=== PATIENT | male | born 1995 | race Caucasian/White ===

== ENCOUNTER 2018-08-17 20:37 | Emergency (ER) | payer MEDICAID, SELFPAY ==
[2018-08-17 20:39] VITALS: BP 120/73; PULSE 71; RESP 18; TEMP 36.4; O2SAT 98
--- NOTE | 2018-08-17 20:49 | ED.GENADUL_ITS ---
Discharge Plan Disposition Patient Disposition: HOME Condition: Stable Discharge Details Chief Complaint: RashLesion Clinical Impression: Rash, Skin pustule Primary Care Provider: KALA ALCARAZ ED Provider: Carole Gonzalez Home Meds and New Rx's Prescriptions: New mupirocin 2 % ointment 1 applic TP TID Qty: 15 RF: 0 Continue triamcinolone acetonide 0.1 % Cream 1 applic TOPICAL BID RF: 0 Discharge Instructions Instructions: Acute Rash (ED) Additional Instructions: Keep area clean dry and covered. Wash with soap and water and apply the mupirocin 3 times daily as directed. You can also continue using the steroid cream triamcinolone directed. Call your primary care doctor tomorrow to schedule follow-up appointment for reevaluation within the next week. Return here immediately with any worsening or new concerning symptoms such as fever, increased pain, redness, swelling or red streaking. Discharge Data Discharge Date/Time-TO BE ENTERED AT DEPARTURE: 08/17/18 21:19 Discharge Physician: Carole Gonzalez Medical Decision Making 22-year-old male presents with itchy tender rash noted to left hand over the past few week. No change with triamcinolone cream. Patient admits to having pet rats and states he handled 1 of them recently after they , but denies any known injury or bite. Denies any other new exposures. Left medial and palmar hand notes a well delineated circular rash with mild central clearing and a darker erythematous border with scattered pustules. There is no red streaking, induration, fluctuance or abscess. Patient appears nontoxic. He is afebrile. Unsure of diagnosis at this time but with pustules and tenderness, suspect more localized infection so will apply bacitracin here and sent home with prescription for mupirocin. He is instructed to call his primary care doctor tomorrow to schedule a follow-up appointment for reevaluation and return here immediately if worse. HPI General Mode of arrival: ambulatory . Date/Time Provider Initiated Documentation: 08/17/18 20:48 . Limitations to Documentation: no limitations . Information obtained by: patient . HPI Narrative: Patient is a 22-year-old male who presents with rash to left hand for the past few week. Patient denies known injury, bite, new meds, lotions, detergents, soaps. Patient states it started as a small area of an itchy rash and now has progressed with pustules and is now painful and tender to touch. He denies fever, any other rash, vomiting or diarrhea. Patient has been using triamcinolone cream without relief. Past medical history: None Surgical history: None Meds: None Allergies: None Related Data Home Medications Medication Instructions Recorded Confirmed mupirocin 1 applic TP TID #15 gm 08/17/18 triamcinolone acetonide 1 applic TOPICAL BID 08/17/18 08/17/18 Previous Rx's Medication Instructions Recorded mupirocin 1 applic TP TID #15 gm 08/17/18 Allergies Allergy/AdvReac Type Severity Reaction Status Date / Time No Known Allergies Allergy Unverified 11/25/16 20:00 General Stated Complaint: RashLesion MICHAEL: 5 Review of Systems Review of Systems All systems reviewed & are unremarkable except as noted in HPI and below Constitutional Reports as per HPI, Denies chills and Denies fever(s) Eyes Denies blurry vision ENT Denies dizziness, Denies sore throat and Denies throat swelling Cardiovascular Denies chest pain and Denies dyspnea Respiratory Denies dyspnea Gastrointestinal Denies abdominal pain, Denies diarrhea and Denies vomiting Genitourinary Denies hematuria and Denies dysuria Musculoskeletal Denies back pain and Denies numbness Integumentary/Breasts Denies lesions and Reports rash Neurologic Denies dizziness and Denies numbness Allergic/Immunologic Denies throat swelling PFSH Social History Smoking/Tobacco Use Status: Never Exam Const General: cooperative, healthy appearing and no acute distress HENGA Head: normal to inspection Mouth: oral mucosae normal Eyes General: appearance normal, both eyes and all related structures Neck Neck: normal visual inspection Resp Effort & Inspection: normal respiratory effort and able to speak in complete sentences Cardio Rate: regular rate Skin Rashes: rashes noted (An approximately 3 x 3 cm circular area of erythema with minimal central clearing and an outer erythematous border, with scattered pustules noted on left medial hand on palmar and medial surface overlying fifth metacarpal) Neuro General: alert, awake and oriented x3 Motor: muscle tone normal throughout Extrem General: normal to inspection and full ROM Psych Appearance: grossly normal Affect: normal affect Course Vital Signs Temperature 97.5 F L 08/17/18 20:39 Pulse 71 08/17/18 20:39 Respiratory Rate 18 08/17/18 20:39 Blood Pressure 120/73 08/17/18 20:39 Pulse Oximetry 98 08/17/18 20:39 Temperature 97.5 F L 08/17/18 20:39 Temperature Source Temporal Artery Scan 08/17/18 20:39 Pulse 71 08/17/18 20:39 Respiratory Rate 18 08/17/18 20:39 Respiratory Effort 08/17/18 20:39 Blood Pressure 120/73 08/17/18 20:39 Blood Pressure Position Sitting 08/17/18 20:39 Pulse Oximetry 98 08/17/18 20:39 Oxygen Delivery Method Room Air 08/17/18 20:39 Oxygen Flow Rate 0 08/17/18 20:39 Pain Level 5 08/17/18 20:39
[2018-08-17] MEDS: Bacitracin 1 PACKET (21:20)
== END 2018-08-17 21:19 | disposition home or self-care (01) ==
LOC: ER 21:23
PROVIDERS: Emergency Provider Physician Assistant; PCP Pediatrics
DX: R21 Rash and other nonspecific skin eruption (principal); L08.9 Local infection of the skin and subcutaneous tissue, unspecified
CPT/HCPCS: 99283

== ENCOUNTER 2019-05-31 15:25 | Emergency (ER) | payer MEDICAID, SELFPAY ==
[2019-05-31 15:27] VITALS: BP 112/64; PULSE 115; RESP 16; TEMP 37.3; O2SAT 98
--- NOTE | 2019-05-31 16:08 | DI.RAD_ITS ---
SYMPTOM/DIAGNOSIS: COUGH, R/O PNEUMONIA PA AND LATERAL CHEST: 05/31 The heart is normal in size. The lungs are clear. The mediastinal structures and pleura appear intact. CONCLUSION: Normal chest.
--- NOTE | 2019-05-31 16:27 | DI.VRAD_ITS ---
EXAM: XR Chest, 2 Views EXAM DATE/TIME: 05/31/2019 4:07 PM CLINICAL HISTORY: 23 years old, male; Cough TECHNIQUE: Imaging protocol: XR of the chest, 2 views. COMPARISON: No relevant prior studies available. FINDINGS: Lungs: Unremarkable. No consolidation. Pleural space: Unremarkable. No pleural effusion. No pneumothorax. Heart/Mediastinum: Unremarkable. No cardiomegaly. Bones/joints: Unremarkable. IMPRESSION: No acute findings. Dictated and Authenticated by: Gera Carmen MD. Ordering:MALLIKA Bhagat MD
--- NOTE | 2019-05-31 16:35 | W.ED.GENAD ---
Discharge Plan Disposition Patient Disposition: HOME Condition: Good Discharge Details Chief Complaint: Fever Clinical Impression: URI (upper respiratory infection) Primary Care Provider: Leandro Sánchez ED Provider: Olayinka Hawthorne Home Meds and New Rx's Prescriptions: New acetaminophen [Mapap Extra Strength] 500 MG tablet 1,000 mg PO Q6H 5 Days Qty: 60 RF: 0 ibuprofen [Motrin IB] 200 MG tablet 600 mg PO Q6H 5 Days Qty: 60 RF: 0 Discharge Instructions Instructions: Upper Respiratory Infection (ED) Additional Instructions: At this time your chest x-ray has been read as negative for any pneumonia from our radiologist. I suspect her symptoms are from a viral illness. Please make sure you are taking Tylenol and Motrin as directed and drinking 10 to 12 cups of water or electrolyte solution per day. If you notice any worsening of your symptoms, or any new symptoms such as vomiting, diarrhea, fever, chills, shortness of breath, chest pain, numbness, weakness, or fainting , please return immediately to the emergency department for reevaluation. Please follow up with your primary care provider as soon as possible for reassessment and reevaluation. As always, it was a pleasure participating in your medical care today. Stand Alone Forms: Work Release Referrals: Leandro Sánchez [Primary Care Provider] - Discharge Data Discharge Date/Time-TO BE ENTERED AT DEPARTURE: 05/31/19 16:54 Medical Decision Making 23-year-old male who presents for evaluation of malaise, mild myalgias, subjective fever of 99.6. he also has symptoms of an upper respiratory infection with congestion, runny nose, mild nonproductive cough. Physical exam demonstrates clear lung sounds, no clinical signs of meningitis. No nuchal rigidity, normal neurologic exam. No significant erythema besides a negative anterior oropharynx. No indication testing per [facility] criteria. Chest x-ray negative for any pneumonia. Suspect signs and symptoms are clinically consistent with a viral etiology. No red flags for endocarditis, no IV drug use. No cardiac murmur. Recommend hydration, NSAID use as necessary, and rest over the next 24 to 48 hours. Discussed red flags for which to return. I have extensively reviewed the treatment plan and discharge instructions with the patient and their family. I have addressed all patient concerns at this time. The patient and family was made aware of what symptoms to monitor for that would warrant a return to the emergency department. Discussed the plan with the patient and family, they demonstrate verbal understanding and agreement with our assessment and plan at this time. FINDINGS: Lungs: Unremarkable. No consolidation. Pleural space: Unremarkable. No pleural effusion. No pneumothorax. Heart/Mediastinum: Unremarkable. No cardiomegaly. Bones/joints: Unremarkable. IMPRESSION: No acute findings. Thank you for allowing us to participate in the care of your patient. Dictated and Authenticated by: Gera Carmen DO 05/31/2019 4:27 PM Eastern Time ([place] & [place]) HPI General Date/Time Provider Initiated Documentation: 05/31/19 15:51. HPI Narrative: This is a 23-year-old male with no significant past medical history presents today for feelings of malaise, myalgias, very mild headache, cough, runny nose and upper respiratory-like symptoms. Since it is been present for the last 24 hours. He does work at [employer] but he denies any other sick contacts. He has taken NSAIDs at home and this does improve his symptoms. He denies any chest pain, pleuritic chest pain, productivity for his cough, hemoptysis, or chills. He does admit to feeling slightly warm over the last 24 hours but denies any documented fever. I's temperature was 99.6. He denies any sore throat, dysuria, increased urinary frequency, nausea vomiting or diarrhea. He denies any other complaints at this time. He denies any visual changes, aversion to light or loud noise. He has not been drinking much as of late secondary to his mild malaise. He denies any IV or illicit drug use, pertinent surgical history, pertinent family history. Related Data Home Medications Medication Instructions Recorded Confirmed acetaminophen [Mapap Extra 1,000 mg PO Q6H 5 Days #60 tab 05/31/19 Strength] ibuprofen [Motrin Ib] 600 mg PO Q6H 5 Days #60 tab 05/31/19 Previous Rx's Medication Instructions Recorded acetaminophen [Mapap Extra 1,000 mg PO Q6H 5 Days #60 tab 05/31/19 Strength] ibuprofen [Motrin Ib] 600 mg PO Q6H 5 Days #60 tab 05/31/19 Allergies Allergy/AdvReac Type Severity Reaction Status Date / Time No Known Allergies Allergy Unverified 05/31/19 15:33 General Stated Complaint: Fever MICHAEL: 3 Review of Systems Review of Systems All systems reviewed & are unremarkable except as noted in HPI and below PFSH Social History Smoking/Tobacco Use Status: Never Alcohol Intake: never Drug use: Never Substance use type: does not use Do you feel safe at home: Yes Do you feel safe in your relationship?: Yes Exam Narrative Exam Narrative: 1.Const: Well-nourished, Well-developed, appearing stated age 2.Eyes: PERRL, no conjunctival injection, and symmetrical lids. 3.ENT: Atraumatic external nose and ears. Moist MM. Neck: Symmetric, trachea midline, No thyromegaly.No erythema in the posterior oropharynx. 4.CVS: +S1/S2, No murmurs or gallops. Peripheral pulses 2+ and equal in all extremities. Brisk capillary refill in all extremities. 5.RESP: Unlabored respiratory effort. Clear to auscultation bilaterally. No wheezes rales or rhonchi 6.GI: Soft, Nontender/Nondistended, No hepatosplenomegaly. No guarding or rebound. 7.MSK: Normocephalic/Atraumatic, Extremities w/o deformity or ttp No cyanosis or clubbing, Normal movement of all extremities. Patient demonstrates good movement of cervical neck. There is no nuchal rigidity, no nuchal tenderness. Patient is able to flex the neck without any difficulty or significant pain. Negative Kernig's and Brudzinski sign. 8.Skin: Warm, Dry. No rashes or lesions. 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 Sensation grossly intact, no focal neurologic deficits. All 6 cardinal planes of vision are fully intact. No evidence of rotatory or vertical nystagmus. The patient demonstrated a normal [id number], good dexterity. There was no evidence of dysdiadochokinesia. Patient was able to ambulate without difficulty. There was no wide-based gait. Romberg, and [id number] are both normal on testing. Sensation was intact bilaterally as well as muscle strength bilaterally for all extremities. Patient was able to verbalize butter cup with no slurring, or miss pronunciation. 10.Psych: (AAO) x3. Appropriate mood and affect Course Vital Signs Temperature 37.3 C 05/31/19 15:27 Pulse 115 H 05/31/19 15:27 Respiratory Rate 16 05/31/19 15:27 Blood Pressure 112/64 05/31/19 15:27 Pulse Oximetry 98 05/31/19 15:27 Temperature 37.3 C 05/31/19 15:27 Temperature Source Skin 05/31/19 15:27 Pulse 115 H 05/31/19 15:27 Respiratory Rate 16 05/31/19 15:27 Respiratory Effort 05/31/19 15:33 Blood Pressure 112/64 05/31/19 15:27 Blood Pressure Position Sitting 05/31/19 15:27 Pulse Oximetry 98 05/31/19 15:27 Oxygen Delivery Method Room Air 05/31/19 15:27 Oxygen Flow Rate 0 05/31/19 15:27 Pain Level 8 05/31/19 15:27 Lab/Test Results Lab/Test Results: 05/31/19 15:38 Nasopharynx Influenza Types A,B Antigen - Final
[2019-05-31 16:47] VITALS: BP 108/62; PULSE 99; RESP 14; TEMP 37.6; O2SAT 97
== END 2019-05-31 16:54 | disposition home or self-care (01) ==
PROVIDERS: Emergency Provider Student in an Organized Health Care Education/Training Program; PCP Pediatrics
DX: J06.9 Acute upper respiratory infection, unspecified (principal); R05 Cough
CPT/HCPCS: 87449; 99283; 71046

== ENCOUNTER 2019-06-04 19:22 | Emergency (ER) | payer MEDICAID, SELFPAY ==
[2019-06-04 19:27] VITALS: BP 117/64; PULSE 78; RESP 18; TEMP 36.7; O2SAT 95
--- NOTE | 2019-06-04 19:36 | ED.GENADUL_ITS ---
Discharge Plan Disposition Patient Disposition: HOME Condition: Stable Discharge Details Chief Complaint: RespSymp Clinical Impression: Bronchitis Primary Care Provider: Leandro Sánchez ED Provider: Marek Ta Home Meds and New Rx's Prescriptions: New doxycycline hyclate 100 mg tablet 100 mg PO BID Qty: 14 RF: 0 Continued acetaminophen [Mapap Extra Strength] 500 MG tablet 1,000 mg PO Q6H 5 Days Qty: 60 RF: 0 ibuprofen [Motrin IB] 200 MG tablet 600 mg PO Q6H 5 Days Qty: 60 RF: 0 Discharge Instructions Additional Instructions: continue to drink fluids to stay hydrated if you feel you are becoming more ill, having worsening breathing or persistent vomit return to the emergency department if not better in 1-2 weeks see your primary care provider Medical Decision Making 23 yo male with no chronic medical problems comes in with continued cough and not feeling well for about 7-10 days. Denies fevers anymore, was seen a few days ago and dx'd with likely uri but continues to cough and have sinus pressure. He arrives with stable vitals and speaking in full sentences. HAs clear lungs on exam, clear rhinorrhea, normal orpharynx, no abodminal tenderness, does have sinus tenderness to percussion. Suspect could still be viral but given length of time will cover for possible developing cap vs sinusitis with doxy. Advised f/u with pcp and return precautions given. Given normal vitals, clear lungs and well appearance otherwise do not feel labs or imaging indicated Differential Diagnosis uri, bronchitis, pna, sinusitis HPI General Mode of arrival: ambulatory . Date/Time Provider Initiated Documentation: 06/04/19 19:25 . Limitations to Documentation: no limitations . Information obtained by: patient . History of Present Illness 23 year old M presents to the emergency department with the chief complaint of cough, described as moderate, Patient reports no radiation. Patient started experiencing this day(s) (7) and it has been constant. No relieving factors improve symptom(s), No exacerbating factors reported . Patient did receive the following treatments prior to arrival, NSAID Related Data Home Medications Medication Instructions Recorded Confirmed acetaminophen [Mapap Extra 1,000 mg PO Q6H 5 Days #60 tab 05/31/19 06/04/19 Strength] ibuprofen [Motrin IB] 600 mg PO Q6H 5 Days #60 tab 05/31/19 06/04/19 doxycycline hyclate 100 mg PO BID #14 tab 06/04/19 Previous Rx's Medication Instructions Recorded acetaminophen [Mapap Extra 1,000 mg PO Q6H 5 Days #60 tab 05/31/19 Strength] ibuprofen [Motrin IB] 600 mg PO Q6H 5 Days #60 tab 05/31/19 doxycycline hyclate 100 mg PO BID #14 tab 06/04/19 Allergies Allergy/AdvReac Type Severity Reaction Status Date / Time No Known Allergies Allergy Unverified 05/31/19 15:33 General Stated Complaint: RespSymp MICHAEL: 4 Review of Systems Review of Systems All systems reviewed & are unremarkable except as noted in HPI and below Constitutional Denies chills and Denies fever(s) Cardiovascular Denies chest pain and Denies dyspnea Respiratory Denies dyspnea Gastrointestinal Denies abdominal pain, Denies nausea and Denies vomiting Musculoskeletal Denies joint swelling PFSH Social History Smoking/Tobacco Use Status: Never Alcohol Intake: never Drug use: Never Substance use type: does not use Do you feel safe at home: Yes Do you feel safe in your relationship?: Yes Exam Const General: no acute distress Orientation: alert HENMT Head: normal to inspection Ears: external ears normal General nose exam: external nose normal Mouth: moist mucous membranes Eyes General: appearance normal, both eyes and all related structures Neck Neck: normal visual inspection Resp Effort & Inspection: normal respiratory effort and able to speak in complete sentences Cardio Rate: regular rate Skin General skin exam: no rashes or lesions noted Neuro General: alert and oriented x3 Extrem General: normal to inspection Psych Mental Status: mental status grossly normal Course Vital Signs Temperature 36.7 C 06/04/19 19:27 Pulse 78 06/04/19 19:27 Respiratory Rate 18 06/04/19 19:27 Blood Pressure 117/64 06/04/19 19:27 Pulse Oximetry 95 06/04/19 19:27 Temperature 36.7 C 06/04/19 19:27 Temperature Source Temporal Artery Scan 06/04/19 19:27 Pulse 78 06/04/19 19:27 Respiratory Rate 18 06/04/19 19:27 Blood Pressure 117/64 06/04/19 19:27 Blood Pressure Position Sitting 06/04/19 19:27 Pulse Oximetry 95 06/04/19 19:27 Oxygen Delivery Method Room Air 06/04/19 19:27 Oxygen Flow Rate 0 06/04/19 19:27
[2019-06-04] MEDS: Doxycycline Hyclate 100 MG CAP PO (19:49)
== END 2019-06-04 19:45 | disposition home or self-care (01) ==
PROVIDERS: Emergency Provider Emergency Medicine; PCP Pediatrics
DX: J20.9 Acute bronchitis, unspecified (principal)
CPT/HCPCS: 99283

== ENCOUNTER 2019-07-28 17:44 | Emergency (ER) | payer MEDICAID, SELFPAY ==
[2019-07-28 18:19] VITALS: BP 124/69; PULSE 70; RESP 16; TEMP 36.6; O2SAT 98
[2019-07-28 18:36] LABS: Bilirubin Negative (Negative); Blood Large (Negative); Clarity Cloudy (Clear); Glucose Negative (Negative); Ketones Negative (Negative); Leukocyte Esterase Negative (Negative); Nitrite Negative (Negative); Specific Gravity 1.025 (1.005-1.025); Urobilinogen 0.2 EU/dL (Up TO 0.2)
[2019-07-28 18:46] LABS: Bacteria Negative HPF (Negative); C & S Indicated? No; Casts Negative LPF (Negative); Crystals Negative HPF (Negative); Epithelial Cells Negative HPF (Negative); Mucus Negative (Negative); RBC >50 (0-2); WBC Negative HPF (0-5)
[2019-07-28 20:11] VITALS: BP 135/80; PULSE 78; RESP 16; TEMP 36.7; O2SAT 98
--- NOTE | 2019-07-28 20:24 | ED.GENADUL_ITS ---
Discharge Plan Disposition Patient Disposition: HOME Condition: Good Discharge Details Chief Complaint: Urinary Clinical Impression: Painless hematuria Primary Care Provider: Leandro Sánchez ED Provider: Pineda Cavanaugh Home Meds and New Rx's Prescriptions: No Action No Known Home Meds RF: 0 Discharge Instructions Instructions: Hematuria (ED) Additional Instructions: Your work-up tonight is unremarkable. Your blood count, kidney function, blood coagulation studies are all normal. Your CT scan shows no evidence of kidney stone or other pathology involving the kidney, ureters, bladder. A urine culture is pending. We will refer you to Dr. Holland of urology for further evaluation and management. Return to the emergency department if you develop fevers, pain, uncontrolled vomiting, other concerns or problems. Referrals: Mack Holland MD [ [facility] STAFF PHYSICIAN] - Discharge Data Discharge Date/Time-TO BE ENTERED AT DEPARTURE: 07/28/19 22:20 Medical Decision Making Patient presenting with painless hematuria. He has an unremarkable exam. exam is normal. Prostate is nontender. Back has no CVAT. Urinalysis is positive for blood and greater than 50 red cells seen on micro. Urine culture ordered but he is not describing dysuria, frequency, urgency, flank pain, fever. IV established and laboratory studies obtained. CT scan of the abdomen pelvis ordered. Patient's white count is normal. Platelets are normal. Hemoglobin is normal. Coags are normal. Kidney function is normal. CT scan of the abdomen and pelvis shows no abnormality of the renal system. Some evidence of lymph nodes in the right lower quadrant of unknown significance. Otherwise unremarkable. Cultures are pending at this time. Will refer to Dr. Holland for further evaluation and management of painless hematuria. Patient to return to ED if he develops fever, back or abdominal pain, vomiting, other concerns or problems. Lab Data Lab results reviewed: Yes I reviewed the patient's lab results. HPI General Mode of arrival: ambulatory . Date/Time Provider Initiated Documentation: 07/28/19 18:50 . Limitations to Documentation: no limitations . Information obtained by: patient and RN notes reviewed . HPI Narrative: Patient presents to ED with complaint of hematuria. Patient reports that he just started to notice blood in his urine this afternoon. He is not having difficulty urinating. He does not have pain with urination. He denies having back/flank/abdominal pain. He had some dysuria a couple days ago which was minimal but resolved. He has no testicular pain. He has no discharge. He denies fever, nausea, vomiting. He has not had this previously. He has on occasion had rectal bleeding which he describes as blood on the toilet paper but normal stool. Related Data Home Medications Medication Instructions Recorded Confirmed Unknown [No Known Home Meds] 07/28/19 07/28/19 Allergies Allergy/AdvReac Type Severity Reaction Status Date / Time No Known Allergies Allergy Unverified 07/28/19 18:24 General Stated Complaint: Urinary MICHAEL: 3 Review of Systems Review of Systems Narrative: As documented in HPI otherwise negative as below. Const: no fever, chills, weakness Resp: no cough, SOB, pleuritic pain CV: no CP, diaphoresis, edema, syncope GI: no abdominal pain, nausea, vomiting, diarrhea Neuro: no headache, numbness, focal weakness, confusion PFSH Social History Smoking/Tobacco Use Status: Never Alcohol Intake: never Drug use: Never Substance use type: does not use Do you feel safe at home: Yes Do you feel safe in your relationship?: Yes Exam Narrative Exam Narrative: Vitals: Afebrile. Normal vital signs. Const: WDWN male in NAD. HEENT: NC/AT. Normal facial exam. Eyes: Normal conjunctiva and sclera. Neck: Supple. Trachea midline. Lungs: Normal respiratory effort. Lungs are clear. Cor: RRR without murmur/gallop. Good radial pulses. GI: Soft. NT/ND. No guarding or rebound. : Normal male genitalia. No testicular swelling/tenderness. Prostate normal and non-tender on GILMER. Back: No CVAT. Neuro: A+O x 3. CN grossly in tact. Good strength and no focal deficit. Ext: No C/C/E. Skin: Warm and dry without rash. Course Vital Signs Vital signs: Vital Signs Temperature 97.9 F 07/28/19 18: Pulse 70 07/28/19 18:19 Respiratory Rate 16 07/28/19 18:19 Blood Pressure 124/69 07/28/19 18:19 Pulse Oximetry 98 07/28/19 18:19 Temperature 98.1 F 07/28/19 20:11 Temperature Source Skin 07/28/19 20:11 Pulse 78 10/09/19 20:11 Respiratory Rate 16 07/28/19 20:11 Respiratory Effort 07/28/19 18:25 Blood Pressure 135/80 07/28/19 20:11 Blood Pressure Position Sitting 07/28/19 18:19 Pulse Oximetry 98 07/28/19 20:11 Oxygen Delivery Method Room Air 07/28/19 20:11 Oxygen Flow Rate 0 07/28/19 20:11 Pain Level 0 07/28/19 20:11 Comment 07/28/19 18:19 Lab/Test Results Lab/Test Results: Laboratory Tests Range/Units 07/28/19 18:30 Urine Color (Yellow) Yellow Urine Clarity (Clear) Cloudy Urine pH (5-8) 7.0 Ur Specific [place] (1.005-1.025) 1.025 Urine Protein (Negative) mg/dL Negative Urine Ketones (Negative) mg/dL Negative Urine Blood (Negative) Large H Urine Nitrite (Negative) Negative Urine Bilirubin (Negative) Negative Urine Urobilinogen (Up TO 0.2) EU/dL 0.2 Ur Leukocyte Esterase (Negative) Negative Urine RBC (0-2) >50 H Urine WBC (0-5) HPF Negative Ur Epithelial Cells (Negative) HPF Negative Urine Crystals (Negative) HPF Negative Urine Bacteria (Negative) HPF Negative Urine Casts (Negative) LPF Negative Urine Mucus (Negative) Negative Ur Culture Indicated? No Urine Glucose (Negative) mg/dL Negative
[2019-07-28] MEDS: Lactated Ringers 1,000 ML 1000 ML IV (20:35)
[2019-07-28] MEDS: Ondansetron 4 MG/2 ML VIAL IVP (20:36)
[2019-07-28 20:43] LABS: Abs Immature Grans 0.01 k/cumm (0.0-0.09); Absolute Basophil Count 0.02 k/cumm (0.0-0.2); Absolute Eosinophil Count 0.16 k/cumm (0.0-0.7); Absolute Monocyte Count 0.76 k/cumm (0.11-0.7); Absolute Neutrophil Count 5.08 k/cumm (1.2-6.7); Basophils % 0.2; Eosinophils % 1.8; HCT 47.1 % (40.0-50.0); HGB 16.4 g/dL (13.5-17.5); Immature Grans % 0.1; Lymphocytes % 31.7; Mean Corp. HGB Concentration 34.8 g/dL (32.0-36.0); Mean Corpuscular Hemoglobin 29.9 pg (27.0-33.0); Mean Corpuscular Volume 85.9 fL (80-95); Mean Platelet Volume 9.4 fL (8.0-11.0); Monocytes % 8.6; Neutrophils % 57.6; Platelet Count 288 x1000/uL (130-400); RBC 5.48 m/cumm (4.50-6.00); White Blood Cell Count 8.83 k/cumm (4.4-10.8)
[2019-07-28 21:01] LABS: ALT 85 U/L (16-63); AST 37 U/L (15-37); Albumin 4.6 g/dL (3.4-5.0); Alkaline Phosphatase 83 U/L (46-116); Anion Gap 9.2 mmol/L (3-11); BUN 10 mg/dL (7-18); Bilirubin, Total 1.1 mg/dL (0.2-1.0); CO2 28.8 mmol/L (21.0-32.0); CREATININE 0.98 mg/dL (0.70-1.30); Calcium 8.5 mg/dL (8.5-10.1); Chloride 104 mmol/L (98-107); Glucose 84 mg/dL (70-100); Potassium 3.7 mmol/L (3.5-5.1); Sodium 142 mmol/L (136-145); Total Protein 8.3 g/dL (6.4-8.2)
[2019-07-28 21:07] LABS: PTT Activated 26.3 sec (21.0-31.4); Prothrombin Time 10.1 sec (9.3-11.0)
[2019-07-28] MEDS: Omnipaque 350 MG/ML 100 ML BTL IJ (21:10)
--- NOTE | 2019-07-28 21:16 | DI.CT_ITS ---
EXAM: CT ABDOMEN PELVIS W CLINICAL HISTORY: painless hematuria. TECHNIQUE: COMPARISON: No exams were available for comparison FINDINGS: CT examination of the abdomen and pelvis was performed with intravenous infusion of 100 cc of Omnipaq ue 350. Images obtained through the lung bases show a right basilar lung nodule measuring 8 x 4 mill imeters in diameter which is well circumscribed and noncalcified. Follow-up chest CT recommended in 6 months. There is mildly decreased hepatic attenuation consistent with hepatic steatosis. No focal hepatic or splenic abnormality seen. Pancreas is unremarkable. Gallbladder and bile ducts are CT normal. Adr enals and kidneys appear normal. No urinary tract calcification or obstruction. Abdominal aorta is of normal diameter and no major vascular abnormality is seen. There are few mildly dilated mildly thick walled loops of small bowel in the right upper quadrant, no nspecific findings but enteritis not excluded. Slight prominence of lymph nodes in right lower quadr ant, mesenteric adenitis not excluded. Appendix is normal, no evidence of appendicitis. No evidence of bowel obstruction. IMPRESSION: No evidence of urinary tract obstruction or calcification. Possible enteritis and/or mesenteric adenitis.
--- NOTE | 2019-07-28 21:56 | DI.VRAD_ITS ---
PROCEDURE INFORMATION: Exam: CT Abdomen And Pelvis With Contrast Exam date and time: 07/28/2019 9:10 PM Clinical history: 23 years old, male; Other: Painless hematuria TECHNIQUE: Imaging protocol: Computed tomography of the abdomen and pelvis with intravenous contrast. Radiation optimization: All CT scans at this facility use at least one of these dose optimization techniques: automated exposure control; mA and/or kV adjustment per patient size (includes targeted exams where dose is matched to clinical indication); or iterative reconstruction. Contrast material: [id number]; Contrast volume: 100 ml; Contrast route: IV LAC 20G; COMPARISON: No relevant prior studies available. FINDINGS: Liver: Moderate hepatic steatosis. Gallbladder and bile ducts: Normal. No calcified stones. No ductal dilation. Pancreas: Normal. No ductal dilation. Spleen: Small accessory spleen (normal variant). Adrenals: Normal. No mass. Kidneys and ureters: Normal. No hydronephrosis. Stomach and bowel: Unremarkable. No obstruction. No mucosal thickening. Appendix: Normal appendix. Intraperitoneal space: Unremarkable. No free air. No significant fluid collection. Vasculature: Unremarkable. No abdominal aortic aneurysm. Lymph nodes: Few subcentimeter lymph nodes in the right lower quadrant. Bladder: Unremarkable as visualized. Reproductive: Unremarkable as visualized. Bones/joints: Mild lumbar scoliosis. Soft tissues: Unremarkable. IMPRESSION: No acute findings. Normal appendix. No hydronephrosis or renal/ureteral calculus. Findings consistent with mesenteric adenitis in the right lower quadrant, mild, of uncertain clinical significance. Dictated and Authenticated by: Godwin Pacheco MD. Ordering:NURA Sung MD
[2019-07-28 22:15] VITALS: BP 119/83; PULSE 69; RESP 18; TEMP 36.5; O2SAT 99
== END 2019-07-28 22:20 | disposition home or self-care (01) ==
PROVIDERS: Emergency Provider Emergency Medicine; PCP Pediatrics
DX: R31.9 Hematuria, unspecified (principal)
CPT/HCPCS: 36415; 80053; 96361; 96374; 99285; 74177; 81003; 81015; 85025; 85610; 85730; 87086; 99284; J2405; J3490

== ENCOUNTER 2020-06-10 17:28 | Emergency (ER) | payer MEDICAID, SELFPAY ==
[2020-06-10] VITALS (19 sets, daily range): BP systolic 87–131; BP diastolic 58–85; PULSE 72–90; RESP 13–24; TEMP 36.9; O2SAT 95–98
--- NOTE | 2020-06-10 17:45 | DI.RAD_ITS ---
EXAM: XR CHEST 2V PA LATERAL CLINICAL HISTORY: chest pain, sob, r/o acute disease TECHNIQUE: 2D digital imaging was performed. COMPARISON: CR XR CHEST 2V PA LATERAL from 05/31/2019 FINDINGS: The heart is not enlarged. The lungs are clear and well expanded. No pleural effusion seen. Mediastin al contours appear intact. IMPRESSION: Normal chest RADIATION DOSE DELIVERED: Total DLP
--- NOTE | 2020-06-10 17:45 | RT.EKG_ITS ---
APPROVED REPORT Exam: Resting ECG Patient Location: E HR:79 bpm ECG Measurements Heart Rate 79 AXIS UT 147 P 45 QRSd 88 QRS 13 QT 351 T 34 QTc 403 Conclusion Sinus rhythm...normal P axis, V-rate 60- 99 Normal Electrocardiogram I have reviewed and interpreted ECG and agree with software generated interpretation.
--- NOTE | 2020-06-10 18:02 | W.ED.GENAD ---
Discharge Plan Disposition Patient Disposition: HOME Condition: Stable Discharge Details Chief Complaint: Chest Pain Clinical Impression: Atypical chest pain, Dyspnea Primary Care Provider: Godwin John ED Provider: Carole Gonzalez Home Meds and New Rx's Prescriptions: Continued calcium carbonate [Tums] 200 mg calcium (500 mg) tablet,chewable 200 mg PO PRN RF: 0 sennosides [Senna Laxative] 8.6 mg tablet 8.6 mg PO PRN RF: 0 omeprazole 20 mg capsule,delayed release(DR/EC) 20 mg PO DAILY Qty: 90 RF: 3 Discharge Instructions Instructions: Chest Pain (ED), Dyspnea (ED) Additional Instructions: Drink plenty of fluids and get plenty of rest. Alternate tylenol and motrin as needed and directed for pain. Follow-up with your primary care doctor in 1 week. Return to the emergency department with any worsening or new concerning symptoms. Stand Alone Forms: Work Release Discharge Data Discharge Date/Time-TO BE ENTERED AT DEPARTURE: 06/10/20 20:15 Discharge Physician: Carole Gonzalez Medical Decision Making 24-year-old male with a history of anxiety and depression presents with intermittent episodes of chest pain or shortness of breath for the past few weeks. EKG notes a rate of 79, sinus, no acute ST/T wave ischemic changes. History and presentation not consistent with PE, dissection, pneumonia or ACS. Screening labs including d-dimer, troponin ordered on arrival and negative. Chest x-ray negative. Patient denied any acute complaints on re-evaluation and he felt good to go home. He wanted a work note for tomorrow to return. He was advised to follow-up with his primary care doctor for reevaluation for consideration for outpatient echocardiogram or stress test if symptoms persist and for recheck of his liver enzymes. Usual and customary return precautions given prior to discharge. Medical Records Medical records reviewed: Yes I reviewed the patient's medical records. Imaging Data Radiologic Study: Radiologist's impression: XR Chest, 2 Views Exam date and time: 06/10/2020 6:46 PM Age: 24 years old Clinical indication: Other: Chest pain, SOB, R/O acute disease TECHNIQUE: Imaging protocol: XR of the chest Views: 2 views. COMPARISON: CR XR CHEST 2V PA LATERAL 05/31/2019 4:07 PM FINDINGS: Lungs: There are low lung volumes with crowding of the bronchovascular markings. No focal consolidation. Pleural space: No pleural effusion. No pneumothorax. Heart/Mediastinum: The heart and mediastinum are stable in appearance. Bones/joints: No acute fracture. No destructive bone lesion. IMPRESSION: No acute cardiopulmonary disease. Lab Data Lab results reviewed: Yes I reviewed the patient's lab results. Labs: Laboratory Tests Range/Units 06/10/20 06/10/20 06/10/20 18:05 18:05 18:05 WBC (4.4-10.8) 10^3/uL 8.73 RBC (4.36-5.78) 10^6/uL 5.23 Hgb (13.5-17.5) g/dL 15.7 Hct (40.0-50.0) % 45.9 MCV (80-95) fL 87.8 MCH (27.0-33.0) pg 30.0 MCHC (32.0-36.0) % 34.2 RDW (11.8-14.1) % 12.8 Plt Count (130-400) 10^3/uL 281 MPV (8.0-11.0) fL 9.4 Immature Gran % 0.5 Neutrophils % 59.8 Lymphocytes % 27.7 Monocytes % 9.6 Eosinophils % 1.9 Basophils % 0.5 Nucleated RBC % % 0 Absolute Neutrophils (1.2-6.7) 10^3/uL 5.22 Absolute Lymphocytes (1.2-3.4) 10^3/uL 2.42 Absolute Monocytes (0.1-0.8) 10^3/uL 0.84 H Absolute Eosinophils (0.0-0.7) 10^3/uL 0.17 Absolute Basophils (0.0-0.2) 10^3/uL 0.04 D-Dimer (<500) ng/mlFEU 224 Sodium (136-145) mmol/L 139 Potassium (3.5-5.1) mmol/L 3.9 Chloride (98-107) mmol/L 102 Carbon Dioxide (21.0-32.0) mmol/L 28.3 Anion Gap (3-11) mmol/L 8.7 BUN (7-18) mg/dL 14 Creatinine (0.70-1.30) mg/dL 1.05 Estimated GFR/1.73 m2 (mL/min/1.73m2) >= 60.00 Glucose (74-106) mg/dL 73 L Calcium (8.5-10.1) mg/dL 8.6 Magnesium (1.8-2.4) mg/dL 2.1 Total Bilirubin (0.2-1.0) mg/dL 1.1 H AST (15-37) U/L 57 H ALT (16-63) U/L 168 H Alkaline Phosphatase (46-116) U/L 75 Troponin I (<0.06) ng/mL < 0.05 Total Protein (6.4-8.2) g/dL 7.8 Albumin (3.4-5.0) g/dL 4.4 Lipase (73-393) U/L Range/Units 06/10/20 18:05 WBC (4.4-10.8) 10^3/uL RBC (4.36-5.78) 10^6/uL Hgb (13.5-17.5) g/dL Hct (40.0-50.0) % MCV (80-95) fL MCH (27.0-33.0) pg MCHC (32.0-36.0) % RDW (11.8-14.1) % Plt Count (130-400) 10^3/uL MPV (8.0-11.0) fL Immature Gran % Neutrophils % Lymphocytes % Monocytes % Eosinophils % Basophils % Nucleated RBC % % Absolute Neutrophils (1.2-6.7) 10^3/uL Absolute Lymphocytes (1.2-3.4) 10^3/uL Absolute Monocytes (0.1-0.8) 10^3/uL Absolute Eosinophils (0.0-0.7) 10^3/uL Absolute Basophils (0.0-0.2) 10^3/uL D-Dimer (<500) ng/mlFEU Sodium (136-145) mmol/L Potassium (3.5-5.1) mmol/L Chloride (98-107) mmol/L Carbon Dioxide (21.0-32.0) mmol/L Anion Gap (3-11) mmol/L BUN (7-18) mg/dL Creatinine (0.70-1.30) mg/dL Estimated GFR/1.73 m2 (mL/min/1.73m2) Glucose (74-106) mg/dL Calcium (8.5-10.1) mg/dL Magnesium (1.8-2.4) mg/dL Total Bilirubin (0.2-1.0) mg/dL AST (15-37) U/L ALT (16-63) U/L Alkaline Phosphatase (46-116) U/L Troponin I (<0.06) ng/mL Total Protein (6.4-8.2) g/dL Albumin (3.4-5.0) g/dL Lipase (73-393) U/L 95 ECG Data Attestation: I personally reviewed and interpreted this ECG (s) as follows: Interpretation: Rate of 79, sinus, no acute ST elevation or depression. MT 147. QRS 88. QTc 403. HPI General Mode of arrival: ambulatory. Date/Time Provider Initiated Documentation: 06/10/20 17:47. Limitations to Documentation: no limitations. Information obtained by: patient. HPI Narrative: Pt is a 24-year-old male with a history of anxiety and depression who presents to the ED with a c/o intermittent episodes of chest pain or shortness of breath for the past few weeks. Pt states the episodes can occur at random and also when drinking cold beverages at times he feels a sharp pain in his chest. He denies any pain or shortness of breath at present. He denies fever, cough, nausea, vomiting, dizziness, recent travel, recent surgery or known sick contacts. Related Data Home Medications Medication Instructions Recorded Confirmed calcium carbonate 200 mg calcium 200 mg PO PRN tab 05/16/20 06/10/20 (500 mg) chewable tablet omeprazole 20 mg capsule,delayed 20 mg PO DAILY #90 cap 05/16/20 06/10/20 release sennosides 8.6 mg tablet 8.6 mg PO PRN tab 05/16/20 06/10/20 Previous Rx's Medication Instructions Recorded omeprazole 20 mg capsule,delayed 20 mg PO DAILY #90 cap 05/16/20 release Allergies Allergy/AdvReac Type Severity Reaction Status Date / Time No Known Allergies Allergy Verified 06/10/20 18:01 General Stated Complaint: Chest Pain MICHAEL: 2 Review of Systems All systems reviewed & are unremarkable except as noted in HPI and below Constitutional Constitutional: Reports as per HPI, Denies chills and Denies fever(s) Eyes Eyes: Denies blurry vision ENT Ears, Nose, Mouth, and Throat: Denies dizziness, Denies sore throat and Denies throat swelling Cardiovascular Cardiovascular: Reports chest pain and Reports dyspnea Respiratory Respiratory: Denies cough and Reports dyspnea Gastrointestinal Gastrointestinal: Denies abdominal pain, Denies diarrhea and Denies vomiting Genitourinary Genitourinary: Denies hematuria and Denies dysuria Musculoskeletal Musculoskeletal: Denies back pain and Denies numbness Integumentary/Breasts Skin/Breast: Denies lesions and Denies rash Neurologic Neurologic: Denies dizziness, Denies localized weakness and Denies numbness Allergic/Immunologic Allergic/Immunologic: Denies throat swelling [facility] Medical History (Updated 06/10/20 @ 19:42 by Carole Gonzalez DO) Depression (Chronic) Family history of coronary artery disease (Acute) Gross hematuria (Acute) Screening for STD (sexually transmitted disease) (Acute) Family History (Updated 05/31/20 @ 10:01 by Mirta Gonzalez) Father Myocardial infarction Social History (Updated 05/16/20 @ 08:14 by Lilly Schmidt LPN) Smoking/Tobacco Use Status: Never Alcohol Intake: never Drug use: Never Substance use type: does not use Adopted: No Household members: other Details: roomate Number of Children: 0 Education Level: college Do you need help understanding health information?: Often current occupation: [employer], Degree in [employer] Sexually active: No Do you think of yourself as: straight/heterosexual Current gender identity: male What type of physical activity do you participate in: none Seatbelt use: always Drive intox or ride w/intox 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: No Working smoke detector in home: Yes Fire extinguisher in home: Yes Carbon monox detector in home: Yes Do you feel safe at home: Yes Do you feel safe in your relationship?: Yes Exam Const General: cooperative, healthy appearing and no acute distress HENMT Head: normal to inspection Face and sinus: normal facial exam Eyes General: appearance normal, both eyes and all related structures EOM: EOM intact bilaterally Neck Neck: normal visual inspection and No submandibular swelling Lymphatic: no lymphadenopathy noted Chest Chest: normal inspection of the chest and no tenderness Resp Effort & Inspection: normal respiratory effort and able to speak in complete sentences Auscultation: clear to auscultation bilaterally Cardio Rate: regular rate Rhythm: regular rhythm GI Inspection: normal to inspection Palpation: soft, not firm, not rigid and nontender Auscultation: normal bowel sounds Back/Spine/Pelvis Thoracic/Lumbar Spine: thoracic and lumbar spine normal to inspection Skin General skin exam: no rashes or lesions noted Neuro General: patient alert, patient awake and patient oriented x3 Cognition: normal cognition Speech: speech normal Motor: muscle tone normal throughout Sensory Exam: no sensory deficits noted Extrem General: normal to inspection, full ROM, capillary refill normal, no calf tenderness bilaterally and no edema Psych Appearance: grossly normal Mental Status: mental status grossly normal Speech and Movement: speech and movement normal Affect: normal affect Course Vital Signs Vital signs: Vital Signs Temperature 98.4 F 06/10/20 17:58 Pulse 85 06/10/20 17:58 Respiratory Rate 18 06/10/20 17:58 Blood Pressure 124/85 06/10/20 17:58 Pulse Oximetry 97 06/10/20 17:58 Temperature 98.4 F 06/10/20 17:58 Temperature Source Tympanic 06/10/20 17:58 Pulse 85 06/10/20 17:58 Respiratory Rate 18 06/10/20 17:58 Blood Pressure 124/85 06/10/20 17:58 Pulse Oximetry 97 06/10/20 17:58 Oxygen Delivery Method Room Air 06/10/20 17:58 Oxygen Flow Rate 0 06/10/20 17:58 Pain Level 4 06/10/20 17:58
[2020-06-10 18:13] LABS: Abs Immature Grans 0.04 10^3/uL (0.0-0.06); Absolute Basophil Count 0.04 10^3/uL (0.0-0.2); Absolute Eosinophil Count 0.17 10^3/uL (0.0-0.7); Absolute Lymphocyte Count 2.42 10^3/uL (1.2-3.4); Absolute Monocyte Count 0.84 10^3/uL (0.1-0.8); Absolute Neutrophil Count 5.22 10^3/uL (1.2-6.7); Basophils % 0.5; Eosinophils % 1.9; HCT 45.9 % (40.0-50.0); HGB 15.7 g/dL (13.5-17.5); Immature Grans % 0.5; Lymphocytes % 27.7; MCHC 34.2 % (32.0-36.0); MCV 87.8 fL (80-95); MPV 9.4 fL (8.0-11.0); Monocytes % 9.6; Neutrophils % 59.8; Nucleated RBC 0 %; Platelet Count 281 10^3/uL (130-400); RBC 5.23 10^6/uL (4.36-5.78); RDW 12.8 % (11.8-14.1); RDW-SD 41.1 fL; WBC 8.73 10^3/uL (4.4-10.8)
[2020-06-10 18:29] LABS: ALT 168 U/L (16-63); AST 57 U/L (15-37); Albumin 4.4 g/dL (3.4-5.0); Alkaline Phosphatase 75 U/L (46-116); Anion Gap 8.7 mmol/L (3-11); BUN 14 mg/dL (7-18); Bilirubin, Total 1.1 mg/dL (0.2-1.0); CO2 28.3 mmol/L (21.0-32.0); CREATININE 1.05 mg/dL (0.70-1.30); Calcium 8.6 mg/dL (8.5-10.1); Chloride 102 mmol/L (98-107); Glucose 73 mg/dL (74-106); Magnesium 2.1 mg/dL (1.8-2.4); Potassium 3.9 mmol/L (3.5-5.1); Sodium 139 mmol/L (136-145); Total Protein 7.8 g/dL (6.4-8.2); Troponin I < 0.05 ng/mL (<0.06)
[2020-06-10 18:46] LABS: D-Dimer 224 ng/mlFEU (<500)
--- NOTE | 2020-06-10 19:04 | DI.VRAD_ITS ---
PROCEDURE INFORMATION: Exam: XR Chest, 2 Views Exam date and time: 06/10/2020 6:46 PM Age: 24 years old Clinical indication: Other: Chest pain, SOB, R/O acute disease TECHNIQUE: Imaging protocol: XR of the chest Views: 2 views. COMPARISON: CR XR CHEST 2V PA LATERAL 05/31/2019 4:07 PM FINDINGS: Lungs: There are low lung volumes with crowding of the bronchovascular markings. No focal consolidation. Pleural space: No pleural effusion. No pneumothorax. Heart/Mediastinum: The heart and mediastinum are stable in appearance. Bones/joints: No acute fracture. No destructive bone lesion. IMPRESSION: No acute cardiopulmonary disease. Dictated and Authenticated by: Kevin Radford MD. Ordering:RHEA Lam MD
[2020-06-10 19:52] LABS: Lipase 95 U/L (73-393)
== END 2020-06-10 20:15 | disposition home or self-care (01) ==
PROVIDERS: Emergency Provider Physician Assistant; PCP Family Medicine
DX: R07.89 Other chest pain (principal); R06.00 Dyspnea, unspecified; F41.8 Other specified anxiety disorders; Z82.49 Family history of ischemic heart disease and other diseases of the circulatory system
CPT/HCPCS: 36415; 80053; 83690; 93005; 99285; 71046; 83735; 84484; 85025; 85379; 93010

== ENCOUNTER 2020-12-27 10:27 | Day surgery (SDC) | payer MEDICAID, SELFPAY ==
--- NOTE | 2020-12-27 07:00 | W.PREOPHP ---
Date of service: 12/27/20 Assessment and Plan Assessment and plan (1) GERD (gastroesophageal reflux disease): Status: Chronic Assessment and plan: Mr. Connelly is a pleasant 25-year-old male with a history of heartburn and what sounds like reflux. He was taking omeprazole on a daily basis which at the beginning worked but then stopped working. He now takes it on a as needed basis when his heartburn is pretty bad. Otherwise he takes Tums as needed. He is never had an upper endoscopy. He has no history of nausea or vomiting. He did have some intermittent rectal bleeding as well but that has stopped since starting a fiber supplement. He was constipated when he was having the bleeding that has resolved with the fiber supplement. EGD was recommended. The procedure was explained in detail. Risks and benefits were reviewed. We also reviewed Covid testing and quarantine requirements. Risks, benefits and complications have been reviewed. Complications include but are not limited to bleeding, pain, perforation, sore throat, aspiration, and adverse reaction to the medications. Questions were entertained and answered to their satisfaction and they wished to proceed. No guarantees were given or implied. COVID-19 testing explained to the patient. Reason for test reviewed. Quarantine per state requirements reviewed with patient. Patient understands and agrees to testing. We will proceed with EGD under sedation Qualifiers: Esophagitis presence: esophagitis presence not specified Qualified Code(s): K21.9 - Gastro-esophageal reflux disease without esophagitis History of Present Illness Narrative: Mr. Connelly is a pleasant 25-year-old male who has been experiencing increased in heartburn and reflux symptoms. He was seen in the emergency department in May of last year for chest tightness. EKG was normal he was sent to his primary care physician. Primary care physician felt that on exam and history this was most likely due to GERD. Robin describes the chest pain as heaviness mostly in the sternal area. This heaviness is improved with Tums or omeprazole on a as needed basis. He also states that the heaviness and heartburn have gotten worse since he has gained weight. He has no nausea or vomiting. He was also having some perirectal pain and bleeding which has improved since he started taking a fiber supplement and his stools are soft. He has no family history of colon cancer or rectal cancer. There have been no changes in his health since he was last seen in the office. Review of Systems Constitutional Constitutional: Denies fatigue, Denies fever(s), Denies headache(s) and Denies weight loss Eyes Eyes: Denies change in vision ENT Ears, Nose, Mouth, and Throat: Denies headache(s) and Denies hoarseness Cardiovascular Cardiovascular: Denies chest pain, Denies chest pain at rest, Denies irregular heart rhythm, Denies dyspnea and Denies dyspnea on exertion Respiratory Respiratory: Denies cough, Denies dyspnea and Denies dyspnea on exertion Gastrointestinal Gastrointestinal: Reports as per HPI Genitourinary Genitourinary: Denies dysuria, Denies urinary incontinence and Denies urinary urgency Neurologic Neurologic: Denies headache(s) Endocrine Endocrine: Reports system reviewed and no additional complaints, except as documented and Denies fatigue Hematologic/Lymphatic Hematologic/Lymphatic: Denies easy bruising and Denies lymphadenopathy [facility] Medical History (Updated 12/27/20 @ 10:52 by Sejal Rushing RN) Depression Family history of coronary artery disease Gross hematuria Hx of motion sickness Screening for STD (sexually transmitted disease) Surgical History (Updated 12/27/20 @ 10:52 by Sejal Rushing RN) History of dental surgery Family History Father , 40's Myocardial infarction Depression Mother Thyroid disease Social History Smoking/Tobacco Use Status: Never Smoking risk assessment performed?: Yes Alcohol Intake: never Drug use: Never Substance use type: does not use Adopted: No Household members: other Details: roomate Housing: house Number of Children: 0 Communication Needs: None Education Level: college Do you need help understanding health information?: Often current occupation: [employer], Degree in [employer] Pets and animals: Yes (cat) Pets and animals: cat(s) Sexually active: No Do you think of yourself as: straight/heterosexual Current gender identity: male How often do you talk on the phone with friends or family?: three or more times per week How often do you get together with friends or relatives?: twice per week Do you belong to any clubs or organized social groups?: no Panel score (0-1 are the most socially isolated patients): 1 What type of physical activity do you participate in: none Special jacinto needs: No Seatbelt use: always Drive intox or ride w/intox 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 Working smoke detector in home: Yes Fire extinguisher in home: Yes Carbon monox detector in home: Yes Do you feel safe at home: Yes Do you feel safe in your relationship?: Yes Meds Home Medications and Allergies Allergies Allergy/AdvReac Type Severity Reaction Status Date / Time No Known Allergies Allergy Verified 12/27/20 10:53 Home Medications Medication Instructions Recorded Confirmed Type calcium carbonate 200 mg calcium 200 mg PO PRN tab 05/16/20 12/27/20 History (500 mg) chewable tablet inulin 2 gram chewable tablet 4 g PO DAILY 11/24/20 12/27/20 History Exam Const General: cooperative, comfortable and no acute distress Orientation: alert and oriented x3 HENMT Head: normocephalic and atraumatic Resp Effort & Inspection: normal respiratory effort Auscultation: clear to auscultation bilaterally Cardio Rate: regular rate Rhythm: regular rhythm GI Palpation: soft, no hepatosplenomegaly and nontender
--- NOTE | 2020-12-27 07:04 | W.PM.ENDDOP ---
Date of service: 12/27/20 Time of Service: 12:39 Endoscopy Report DATE OF PROCEDURE: 12/27/20 PRE-OP DIAGNOSIS: GERD POST-OP DIAGNOSIS: same PROCEDURE: EGD with biopsies SURGEON: Samra Foster ANESTHESIA: other (General/ ASA /) COMPLICATIONS: None DISPOSITION: same day INDICATIONS: Mr. Connelly is a pleasant 25-year-old male with a history of heartburn and what sounds like reflux. He was taking omeprazole on a daily basis which at the beginning worked but then stopped working. He now takes it on a as needed basis when his heartburn is pretty bad. Otherwise he takes Tums as needed. He is never had an upper endoscopy. He has no history of nausea or vomiting. He did have some intermittent rectal bleeding as well but that has stopped since starting a fiber supplement. He was constipated when he was having the bleeding that has resolved with the fiber supplement. EGD was recommended. The procedure was explained in detail. Risks and benefits were reviewed. We also reviewed Covid testing and quarantine requirements. Risks, benefits and complications have been reviewed. Complications include but are not limited to bleeding, pain, perforation, sore throat, aspiration, and adverse reaction to the medications. Questions were entertained and answered to their satisfaction and they wished to proceed. No guarantees were given or implied. COVID-19 testing explained to the patient. Reason for test reviewed. Quarantine per state requirements reviewed with patient. Patient understands and agrees to testing. We will proceed with EGD under sedation FINDINGS: Normal duodenum, benign appearing gastric polyp and mild inflammation of the distal esophagus PROCEDURE DESCRIPTION: After informed consent was obtained the patient was take to the procedure room and placed in a supine position. Monitors were applied and a time out was done. The patients name, date of , procedure type, allergies to medications and metal in their body was reviewed. A bite block was placed and the patient was sedated. Once sedated and comfortable the gastroscope was advanced through the oropharynx which was grossly normal into the esophagus. The proximal and mid-esophagus were normal. In the distal esophagus there was ? of mild inflammation noted. The scope was advanced into the stomach and through the pylorus into the 3rd portion of the duodenum. The duodenum was noted to be normal. The scope was retracted back into the stomach. No inflammation was noted. scattered benign polyps were noted. Biopsies were done of the antrum and the body to rule out H. pylori. There were no ulcers. @ of the gastric polyps were removed and sent for pathology. The scope was retroflexed. The cardia and fundus were noted to be normal. There was no hiatal hernia noted. The scope was retracted back into the esophagus and biopsies were done of the GE junction to rule out Hartley's. The Z line was regular. The GE junction was at 58 cm. The scope was removed and the patient was woken up and taken back to [facility] in stable condition. Follow up: 2 weeks in the office
--- NOTE | 2020-12-27 07:06 | PDOC.DSDIS_ITS ---
Discharge Plan Disposition Patient Disposition: HOME Condition: Good Discharge Details Reason For Visit: GERD Attending Provider: Samra Foster Primary Care Provider: Godwin John Home Meds and New Rx's Prescriptions: New omeprazole 40 mg capsule,delayed release(DR/EC) 40 mg PO DAILY Qty: 30 RF: 5 Continued calcium carbonate [Tums] 200 mg calcium (500 mg) tablet,chewable 200 mg PO PRN RF: 0 Fiber Gummies 2 gram tablet,chewable 4 g PO DAILY RF: 0 Discharge Instructions Instructions: Diet for Stomach Ulcers and Gastritis (ED), Gastritis (DC), GERD (Gastroesophageal Reflux Disease) (DC) Additional Instructions: Findings: mild inflammation of the stomach and moderate inflammation of the esophagus Follow up: 2 weeks Please call if you develop: fevers >101.5 Nausea or Vomiting Abdominal pain that is not transient DAY SURGERY UNIT POST ENDOSCOPY INSTRUCTIONS 1. Because there will be medication in your system for the next 24 hours, you may feel a little sleepy. Your coordination will be affected. Therefore: a. Do not drive or operate dangerous equipment for 24 hours. b. Do not drink alcohol beverages for 24 hours (not even beer). c. Plan to go home and rest for the day. 2. Generally there are no restrictions on your activity after a day or so has gone by, but you may feel a bit fatigued for a few days. 3 After you arrive home you may have a light meal and return to a normal diet as you can tolerate it without feeling sick to your stomach. 4. After surgery, you may feel pain or discomfort. This should be only transient, but if it persists please contact your doctor. 5. If there are any questions regarding the findings of your procedure, please feel free to contact your doctor. 6. If you are unable to contact your doctor with a problem, contact the hospital at [phone]. 7. Continue all your regular medications unless directed otherwise. I understand the above instructions and have no questions. Signature of Patient or Responsible Adult Escort Date/Time Name of Responsible Adult Escort Signature of Nurse Date/Time Referrals: Samra Foster MD [ [facility] STAFF PHYSICIAN] - Activity:: Activity as Tolerated Diet:: low fiber Discharge Orders Discharge Orders: Discharge Order (Routine); Ordered 12/27/20 Ordered By: Samra Foster DS: Diagnosis Discharge Diagnosis (1) GERD (gastroesophageal reflux disease): Status: Chronic
[2020-12-27 10:30] VITALS: BP 128/80; PULSE 76; RESP 17; TEMP 36.3; O2SAT 100
[2020-12-27] MEDS: Lactated Ringers 1,000 ML 80 ML IV (11:00)
--- NOTE | 2020-12-27 12:41 | STOM_PTH ---
PATIENT: Robin Connelly LOC: [facility] U#:[id number] AGE/SX: 25/M ROOM: RE12/27/[address]: Samra Foster MD : [id number] BED: DIS: 12/27/2020 SPEC #: [id number] RECD: 12/27/20 16:34 STATUS: SANJUANITANarciso REQ #: [id number] FLORIDALMA: 12/27/20 12:[address]: Samra Foster DEPT: Surgical Specimen RECD BY: Danae Ramirez ENTERED: 12/27/20 16:35 SP TYPE: STOMACH OTHR DR: Godwin John DO Tissues: 1 - STOMACH BIOPSY 2 - STOMACH BIOPSY 3 - STOMACH BIOPSY 4 - ESOPHAGUS BIOPSY Procedures: GROSS AND MICRO LEVEL 4 Comments: [id number]
[2020-12-27 13:34] VITALS: BP 130/77; PULSE 81; RESP 17; TEMP 36.3; O2SAT 96
== END 2020-12-27 13:44 | disposition home or self-care (01) ==
LOC: SUR 10:28
PROVIDERS: PCP Family Medicine; Visit Provider Surgery
PROC: 0DJ68ZZ Inspection of Stomach, Via Natural or Artificial Opening Endoscopic (ICD-10-PCS; CPT 43235; principal; 2020-12-27 11:45)
DX: K21.9 Gastro-esophageal reflux disease without esophagitis (principal); K31.7 Polyp of stomach and duodenum
CPT/HCPCS: 43239; 88305; NC; J2001

== ENCOUNTER 2021-05-30 22:08 | Emergency (ER) | payer OTHER, SELFPAY ==
[2021-05-30 22:14] VITALS: BP 132/77; PULSE 65; RESP 16; TEMP 36.8; O2SAT 95
--- NOTE | 2021-05-30 22:23 | W.ED.GENAD ---
Discharge Plan Disposition Patient Disposition: HOME Condition: Good Discharge Details Clinical Impression: Tendinitis of right wrist Primary Care Provider: Godwin John ED Provider: Pineda Cavanaugh Meds and New Rx's Prescriptions: New ibuprofen 600 mg tablet 600 mg PO TID PRNQty: 15 RF: 0 Continued calcium carbonate [Tums] 200 mg calcium (500 mg) tablet,chewable 200 mg PO PRN RF: 0 Fiber Gummies 2 gram tablet,chewable 4 g PO Q OTHER DAY RF: 0 omeprazole 40 mg capsule,delayed release(DR/EC) 40 mg PO DAILY Qty: 30 RF: 5 Discharge Instructions Instructions: Tendinitis (ED) Additional Instructions: This is likely tendinitis of the wrist which should improve with some rest and nonsteroidals. Wrist splint for protection and to rest the wrist. Ibuprofen as directed. Follow-up with primary care next week if not improving. Return to ED if increasing pain, redness,fever. Stand Alone Forms: Work Release Referrals: Godwin John DO [Primary Care Provider] - Medical Decision Making Likely wrist tendinitis possibly from overuse. No indication for imaging. Wrist splint, nonsteroidals, limited use of right upper extremity at work until improvement being seen. Follow-up with primary care in 1 to 2 weeks for recheck if not improving. Return to ED if any concerns. HPI General Mode of arrival: ambulatory. Date/Time Provider Initiated Documentation: 05/30/21 22:19. Limitations to Documentation: no limitations. Information obtained by: patient. HPI Narrative: Patient is right-hand dominant male presents to ED with right dorsal wrist/forearm pain. Patient has no direct trauma. He does however have a job that forces him to do a lot of lifting, pushing, pulling. Pain is worse when he attempts to push anything. Seems to be emanating from the base of the thumb across the wrist into the lateral dorsal forearm. No associated rash, erythema, fever, weakness, loss of range of motion. Related Data Home Medications Medication Instructions Recorded Confirmed calcium carbonate 200 mg calcium 200 mg PO PRN tab 05/16/20 05/30/21 (500 mg) chewable tablet inulin 2 gram chewable tablet 4 g PO Q OTHER DAY 11/24/20 05/30/21 omeprazole 40 mg PO DAILY #30 cap 12/27/20 05/30/21 ibuprofen 600 mg PO TID PRN #15 tab 05/30/21 Previous Rx's Medication Instructions Recorded omeprazole 40 mg PO DAILY #30 cap 12/27/20 ibuprofen 600 mg PO TID PRN #15 tab 05/30/21 Allergies Allergy/AdvReac Type Severity Reaction Status Date / Time No Known Allergies Allergy Verified 05/30/21 22:18 General Stated Complaint: Orthopedic MICHAEL: 4 Review of Systems Constitutional Constitutional: Denies fever(s) and Denies weakness Cardiovascular Cardiovascular: Denies dyspnea Respiratory Respiratory: Denies cough and Denies dyspnea Musculoskeletal Musculoskeletal: Denies numbness Integumentary/Breasts Skin/Breast: Denies erythema and Denies rash Neurologic Neurologic: Denies numbness and Denies weakness PFS Medical History Depression Family history of coronary artery disease GERD (gastroesophageal reflux disease) mild Gross hematuria Hx of motion sickness Screening for STD (sexually transmitted disease) Surgical History History of dental surgery Family History Father , 40's Myocardial infarction Depression Mother Thyroid disease Social History Smoking/Tobacco Use Status: Never Smoking risk assessment performed?: Yes Alcohol Intake: never Drug use: Never Substance use type: does not use Adopted: No Household members: other Details: roomate Housing: house Number of Children: 0 Communication Needs: None Education Level: college Do you need help understanding health information?: Often current occupation: [employer], Degree in [employer] Science Pets and animals: Yes (cat) Pets and animals: cat(s) Sexually active: No Do you think of yourself as: straight/heterosexual Current gender identity: male How often do you talk on the phone with friends or family?: three or more times per week How often do you get together with friends or relatives?: twice per week Do you belong to any clubs or organized social groups?: no Panel score (0-1 are the most socially isolated patients): 1 What type of physical activity do you participate in: none Special jacinto needs: No Seatbelt use: always Drive intox or ride w/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 HEENT: NC/AT. Normal facial exam. Eyes: Normal conjunctiva and sclera. Neck: Supple. Trachea midline. Lungs: Normal respiratory effort. Cor: RRR. Good radial pulses. Neuro: A+O x 3. Normal speech, mentation, gait. Cranial nerves II - XII grossly intact. No gross motor or sensory deficit. Ext: No C/C/E. Normal range of motion of the right hand, wrist. No tenderness to palpation. Negative [place]. Neurovascularly intact. Skin: Warm and dry without rash. Course Vital Signs Vital signs: Vital Signs Temperature 98.2 F 05/30/21 22:14 Pulse 65 05/30/21 22:14 Respiratory Rate 16 05/30/21 22:14 Blood Pressure 132/77 05/30/21 22:14 Pulse Oximetry 95 05/30/21 22:14 Temperature 98.2 F 05/30/21 22:14 Temperature Source Skin 05/30/21 22:14 Pulse 65 05/30/21 22:14 Respiratory Rate 16 05/30/21 22:14 Respiratory Effort Non-Labored 05/30/21 22:19 Blood Pressure 132/77 05/30/21 22:14 Blood Pressure Position Sitting 05/30/21 22:14 Pulse Oximetry 95 05/30/21 22:14 Oxygen Delivery Method Room Air 05/30/21 22:14 Oxygen Flow Rate 0 05/30/21 22:14 Pain Level 2 05/30/21 22:14
[2021-05-30] MEDS: Ibuprofen 600 MG TAB PO (22:34)
== END 2021-05-30 22:40 | disposition home or self-care (01) ==
PROVIDERS: Emergency Provider Emergency Medicine; PCP Family Medicine
DX: M77.8 Other enthesopathies, not elsewhere classified (principal); X50.3XXA Overexertion from repetitive movements, initial encounter; X50.0XXA Overexertion from strenuous movement or load, initial encounter; Y99.0 Civilian activity done for income or pay
CPT/HCPCS: 29125; 99283

== ENCOUNTER 2021-06-01 20:42 | Emergency (ER) | payer OTHER, SELFPAY ==
[2021-06-01 20:49] VITALS: BP 142/92; PULSE 78; RESP 17; TEMP 36.5; O2SAT 96
--- NOTE | 2021-06-01 21:01 | ED.GENADUL_ITS ---
Discharge Plan Disposition Patient Disposition: HOME Condition: Good Discharge Details Clinical Impression: Muscle strain of left wrist Primary Care Provider: Godwin John ED Provider: Danae Belle Home Meds and New Rx's Prescriptions: Continued calcium carbonate [Tums] 200 mg calcium (500 mg) tablet,chewable 200 mg PO PRN RF: 0 Fiber Gummies 2 gram tablet,chewable 4 g PO Q OTHER DAY RF: 0 ibuprofen 600 mg tablet 600 mg PO TID PRNQty: 15 RF: 0 omeprazole 40 mg capsule,delayed release(DR/EC) 40 mg PO DAILY Qty: 30 RF: 5 Discharge Instructions Instructions: Muscle Strain (ED) Additional Instructions: Take ibuprofen 600 mg every 8 hours with food for the next 5 days Take Tylenol 650 mg every 6 hours for breakthrough pain Limit repetitive motion and lifting for the next several days Please return earlier should you have new or worsening Repeat evaluation 1 week with persistent pain Stand Alone Forms: Work Release Discharge Data Discharge Date/Time-TO BE ENTERED AT DEPARTURE: 06/01/21 21:07 Medical Decision Making Patient states in January, will follow up with primary care physician Work note supplied Ibuprofen and Tylenol for pain control Return precautions discussed and patient expressed understanding Medical Records Medical records reviewed: Yes I reviewed the patient's medical records. HPI General Mode of arrival: ambulatory . Date/Time Provider Initiated Documentation: 06/01/21 20:55 . Limitations to Documentation: no limitations . Information obtained by: patient . HPI Narrative: This 25-year-old male presents with tenderness to his left wrist. Started after lifting some heavy objects at work. He states he was evaluated last week for similar symptoms to his right wrist and has been wearing wrist splint and taking ibuprofen with good relief in symptoms. He is unsure of the exact time of the event but thinks he injured it at that same time as his right wrist with injury. He denies any dramatic change, high in the evening to be evaluated per patient. He states the pain is exacerbated with movement of his wrist and describes it as an aching sensation. He states ibuprofen helps his pain dramatically. He denies fever or chills Related Data Home Medications Medication Instructions Recorded Confirmed calcium carbonate 200 mg calcium 200 mg PO PRN tab 05/16/20 06/01/21 (500 mg) chewable tablet inulin 2 gram chewable tablet 4 g PO Q OTHER DAY 11/24/20 06/01/21 omeprazole 40 mg PO DAILY #30 cap 12/27/20 06/01/21 ibuprofen 600 mg PO TID PRN #15 tab 05/30/21 06/01/21 Previous Rx's Medication Instructions Recorded omeprazole 40 mg PO DAILY #30 cap 12/27/20 ibuprofen 600 mg PO TID PRN #15 tab 05/30/21 Allergies Allergy/AdvReac Type Severity Reaction Status Date / Time No Known Allergies Allergy Verified 06/01/21 20:53 General Stated Complaint: Orthopedic MICHAEL: 4 Review of Systems Narrative: Review of systems obtained x3 and negative aside from where indicated in HPI [facility] Medical History Depression Family history of coronary artery disease GERD (gastroesophageal reflux disease) mild Gross hematuria Hx of motion sickness Screening for STD (sexually transmitted disease) Surgical History History of dental surgery Family History Father , 40's Myocardial infarction Depression Mother Thyroid disease Social History Smoking/Tobacco Use Status: Never Smoking risk assessment performed?: Yes Alcohol Intake: never Drug use: Never Substance use type: does not use Adopted: No Household members: other Details: roomate Housing: house Number of Children: 0 Communication Needs: None Education Level: college Do you need help understanding health information?: Often current occupation: [employer], Degree in [employer] Science Pets and animals: Yes (cat) Pets and animals: cat(s) Sexually active: No Do you think of yourself as: straight/heterosexual Current gender identity: male How often do you talk on the phone with friends or family?: three or more times per week How often do you get together with friends or relatives?: twice per week Do you belong to any clubs or organized social groups?: no Panel score (0-1 are the most socially isolated patients): 1 What type of physical activity do you participate in: none Special jacinto needs: No Seatbelt use: always Drive 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 Working smoke detector in home: Yes Fire extinguisher in home: Yes Carbon monox detector in home: Yes Do you feel safe at home: Yes Do you feel safe in your relationship?: Yes Exam Const General: cooperative and healthy appearing Extrem Other: Left wrist with tenderness,, no swelling, no crepitus, neurovascularly intact, pain with finger flexion and extension Course Vital Signs Vital signs: Vital Signs Temperature 36.5 C 06/01/21 20:49 Pulse 78 06/01/21 20:49 Respiratory Rate 17 06/01/21 20:49 Blood Pressure 142/92 H 06/01/21 20:49 Pulse Oximetry 96 06/01/21 20:49 Temperature 36.5 C 06/01/21 20:49 Temperature Source Temporal Artery Scan 06/01/21 20:49 Pulse 78 06/01/21 20:49 Respiratory Rate 17 06/01/21 20:49 Respiratory Effort Non-Labored 06/01/21 20:52 Blood Pressure 142/92 H 06/01/21 20:49 Blood Pressure Position Sitting 06/01/21 20:49 Pulse Oximetry 96 06/01/21 20:49 Oxygen Delivery Method Room Air 06/01/21 20:49 Oxygen Flow Rate 0 06/01/21 20:49 Pain Level 7 06/01/21 20:49
== END 2021-06-01 21:07 | disposition home or self-care (01) ==
PROVIDERS: Emergency Provider Physician Assistant; PCP Family Medicine
DX: S66.812A Strain of other specified muscles, fascia and tendons at wrist and hand level, left hand, initial encounter (principal); X50.0XXA Overexertion from strenuous movement or load, initial encounter; Y99.0 Civilian activity done for income or pay
CPT/HCPCS: 99281; 99282

== ENCOUNTER 2021-10-06 21:25 | Emergency (ER) | payer MEDICAID, SELFPAY ==
[2021-10-06] VITALS (28 sets, daily range): BP systolic 78–120; BP diastolic 49–76; PULSE 92–116; RESP 18–31; TEMP 36.4; O2SAT 93–96
--- NOTE | 2021-10-06 21:30 | DI.RAD_ITS ---
Exam(s) XR PORTABLE CHEST AP EXAM: XR PORTABLE CHEST AP CLINICAL HISTORY: cough, covid + TECHNIQUE: 2D digital imaging was performed. COMPARISON: CR,XR XR CHEST 2V PA LATERAL from 06/10/2020 FINDINGS: LUNGS: Limited evaluation. Lungs are not well inflated. Mild motion. Question of right lower lobe infiltrates.. HEART: Normal. MEDIASTINUM: Normal. BONES: Unremarkable. IMPRESSION: Limited exam. Question of right lower lobe infiltrates. DATA REPOSITORY: RADIATION DOSE DELIVERED:
--- NOTE | 2021-10-06 21:43 | ED.GENADUL_ITS ---
Discharge Plan Disposition Patient Disposition: HOME Condition: Good Discharge Details Clinical Impression: COVID-19, Dehydration, Transaminitis, Pneumonia due to COVID-19 virus Primary Care Provider: Godwin John ED Provider: Olayinka Hawthorne Home Meds and New Rx's Prescriptions: Continued calcium carbonate [Tums] 200 mg calcium (500 mg) tablet,chewable 200 mg PO PRN RF: 0 Fiber Gummies 2 gram tablet,chewable 4 g PO Q OTHER DAY RF: 0 ibuprofen 200 mg capsule 800 mg PO TID RF: 0 omeprazole 40 mg capsule,delayed release(DR/EC) 40 mg PO DAILY Qty: 30 RF: 5 Discharge Instructions Instructions: COVID-19 (Coronavirus Disease 2019) (ED) Additional Instructions: At this time you do have COVID-19. Your work-up is reassuring. You do have mild transaminitis which is inflammation of your liver. This is likely due to your COVID-19 and also taking Tylenol. Please do not take Tylenol for the time being as it can aggravate your liver. You can take Motrin/ibuprofen though. We did send a hepatitis panel as a precaution. You will be contacted if these results are positive. Please follow-up closely with your primary care provider in the next week or 2 to make sure your liver function is improving. You do have a mild Covid pneumonia. This will take time to get better. If you feel like your cough symptoms shortness of breath or worsening please return immediately for reassessment as this may reflect evidence of a bacterial pneumonia that has started. Please drink 10 to 12 cups of water/fluid at home every day. [id number] vitamin supplementation is reasonable when you have COVID-19. Would recommend taking a daily supplement of zinc, vitamin D, B complex vitamin, melatonin, and vitamin C. take the Zofran as needed for nausea or vomiting. If you notice any worsening of your symptoms, or any new symptoms such as vomiting, diarrhea, fever, chills, shortness of breath, chest pain, numbness, weakness, or fainting , please return immediately to the emergency department for reevaluation. Please follow up with your primary care provider as soon as possible for reassessment and reevaluation. As always, it was a pleasure participating in your medical care today. Referrals: Godwin John DO [Primary Care Provider] - Medical Decision Making This is a 25-year-old male who is positive for COVID-19, who presents today for feelings of malaise. Patient states that 6 days ago he came down with symptoms of fever, malaise, chills mild cough aches. He tested positive for Covid a day later. Since then he has had decreased appetite, decreased oral intake, chills, aches, and occasional mild cough, and an episode of nausea and vomiting today. He denies any other complaints. He states he continues to feel poorly and that is why he presented today. He did not have his Covid vaccine. He has been taking fiber supplements but no vitamin supplements. He denies any pleuritic chest pain, hematemesis, previous pulmonary embolism, hematochezia me jamarcus or acholic stool. Denies PE risk factors such as recent long car rides, immobilization, recent surgery, prior history of DVT or PE, family history of PE or DVT, morbid obesity, exogenous estrogen and smoking, hemoptysis, history of cancer. He denies any vaping. Physical exam demonstrates dry mucous membranes, mild tachycardia, no hypoxemia, clear lung sounds, no calf tenderness. Patient appears well, no signs of toxic appearance or respiratory distress however. We will get a screening chest x- ray, rehydrate with normal saline, give Toradol, monitor closely and reassess. 11:37 PM Laboratory work-up has returned, patient does have mild lymphopenia, electrolytes stable, renal function good, patient does have mild elevation in his bilirubin, AST and ALT. He has been slightly elevated in the past but not this high. He has been taking recommended doses of Tylenol over the last few days for his aches pains and fevers, and I suspect this and having COVID-19 has a component to do that. Out of an abundance of precaution we did send a hepatitis panel. Patient was concerned with his nausea. Abdominal exam shows no signs of an acute surgical abdomen. Negative Barlow sign, out of an abundance of precaution we did CT scan to rule out gallbladder pathology, hepatic abscess, or other significant abnormality. Lipase normal. Skin negative for any acute intra-abdominal pathology. No evidence of cholecystitis, pancreatitis or pancreatic abscess he does have mild pulmonary opacities with Covid pneumonia, not a large focal consolidation suggestive of a bacterial pneumonia. At this time after fluid rehydration the patient is feeling much better. He appears stable for discharge. No evidence of acute respiratory distress. He will be given Zofran for home use, recommend that he stop taking Tylenol, continue hydration at home, close follow-up and recheck with his PCP for reassessment of transaminitis from Covid. I have extensively reviewed the treatment plan and discharge instructions with the patient. I have addressed all patient concerns at this time. The patient was made aware of what symptoms to monitor for that would warrant a return to the emergency department. Discussed the plan with the patient, they demonstrate verbal understanding and agreement with our assessment and plan at this time. The documentation in this chart was dictated using [employer] dictation software. Please excuse any dictation errors. FINDINGS: Lungs: Moderate patchy opacities in the lung bases are consistent with the history of COVID pneumonia. Liver: Fatty liver with no mass lesions. Gallbladder and bile ducts: Normal morphology of the gallbladder. No significant biliary dilation or radiopaque stones in the biliary tree. Pancreas: No ductal dilation. No masses. Spleen: Mild splenomegaly. Adrenal glands: No mass. Kidneys and ureters: No renal masses or hydronephrosis bilaterally. Stomach and bowel: Mild motion artifact with no acute appearing pathology in the small bowel or colon. Appendix: No evidence of appendicitis. Intraperitoneal space: No free air. No significant fluid collection. Vasculature: No abdominal aortic aneurysm. Lymph nodes: No significantly enlarged lymph nodes. Urinary bladder: Unremarkable as visualized. Reproductive: Unremarkable as visualized. Bones/joints: No acute fracture. Soft tissues: No suspicious lesions. IMPRESSION: 1. Pulmonary opacities consistent with the history of COVID pneumonia. 2. No acute abdominal or pelvic pathology. 3. Incidental findings as described. Thank you for allowing us to participate in the care of your patient. Dictated and Authenticated by: Josee Ramirez MD 10/06/2021 11:03 PM Eastern Time ([place] & [place]) HPI General Date/Time Provider Initiated Documentation: 10/06/21 21:26 . HPI Narrative: This is a 25-year-old male who is positive for COVID-19, who presents today for feelings of malaise. Patient states that 6 days ago he came down with symptoms of fever, malaise, chills mild cough aches. He tested positive for Covid a day later. Since then he has had decreased appetite, decreased oral intake, chills, aches, and occasional mild cough, and an episode of nausea and vomiting today. He denies any other complaints. He states he continues to feel poorly and that is why he presented today. He did not have his Covid vaccine. He has been taking fiber supplements but no vitamin supplements. He denies any pleuritic chest pain, hematemesis, previous pulmonary embolism, hematochezia melena or acholic stool. Denies PE risk factors such as recent long car rides, immobilization, recent surgery, prior history of DVT or PE, family history of PE or DVT, morbid obesity, exogenous estrogen and smoking, hemoptysis, history of cancer. He denies any vaping. Related Data Home Medications Medication Instructions Recorded Confirmed calcium carbonate 200 mg calcium 200 mg PO PRN tab 05/16/20 10/06/21 (500 mg) chewable tablet inulin 2 gram chewable tablet 4 g PO Q OTHER DAY 11/24/20 10/06/21 omeprazole 40 mg PO DAILY #30 cap 12/27/20 10/06/21 ibuprofen 200 mg capsule 800 mg PO TID cap 09/19/21 10/06/21 Previous Rx's Medication Instructions Recorded omeprazole 40 mg PO DAILY #30 cap 12/27/20 Allergies Allergy/AdvReac Type Severity Reaction Status Date / Time No Known Allergies Allergy Verified 10/06/21 21:56 General MICHAEL: 4 Review of Systems All systems reviewed & are unremarkable except as noted in HPI and below PFSH All Active Problems (Updated 10/06/21 @ 23:22 by Olayinka Hawthorne DO) COVID-19 (Acute) Dehydration (Acute) Transaminitis (Acute) Pneumonia due to COVID-19 virus (Acute) SARS-CoV-2 positive (Acute ~09/2021) Lateral epicondylitis, left elbow (Acute) Epicondylitis, lateral, right (Acute) De Quervain's tenosynovitis, left (Acute) Tendinitis of right wrist (Acute) Muscle strain of left wrist (Acute) GERD (gastroesophageal reflux disease) (Chronic) mild Screening for STD (sexually transmitted disease) (Acute) Family history of coronary artery disease (Acute) Depression (Chronic) Gross hematuria (Acute) Medical History Hx of motion sickness Surgical History History of dental surgery Family History Father , 40's Myocardial infarction Depression Mother Thyroid disease Social History Smoking/Tobacco Use Status: Never Smoking risk assessment performed?: Yes Alcohol Intake: never Drug use: Never Substance use type: does not use Adopted: No Household members: other Details: roomate Housing: house Number of Children: 0 Communication Needs: None Education Level: college Do you need help understanding health information?: Often current occupation: [employer], Degree in [employer] Pets and animals: Yes (cat) Pets and animals: cat(s) Sexually active: No Do you think of yourself as: straight/heterosexual Current gender identity: male How often do you talk on the phone with friends or family?: three or more times per week How often do you get together with friends or relatives?: twice per week Do you belong to any clubs or organized social groups?: no Panel score (0-1 are the most socially isolated patients): 1 What type of physical activity do you participate in: none Special jacinto needs: No Seatbelt use: always Drive intox or ride w/intox class c truck driver: No Working smoke detector in home: Yes Fire extinguisher in home: Yes Carbon monox detector in home: Yes Do you feel safe at home: Yes Do you feel safe in your relationship?: Yes Exam Narrative Exam Narrative: 1.Const: Well-nourished, Well-developed, appearing stated age 2.Eyes: PERRL, no conjunctival injection, and symmetrical lids. 3.ENT: Atraumatic external nose and ears. Dry MM. Neck: Symmetric, trachea midline, No thyromegaly. Patient demonstrates good movement of cervical neck. There is no nuchal rigidity, no nuchal tenderness. Patient is able to flex the neck without any difficulty or significant pain. Negative Kernig's and Brudzinski sign. 4.CVS: +S1/S2, No murmurs or gallops. Peripheral pulses 2+ and equal in all extremities. Brisk capillary refill in all extremities. 5.RESP: Unlabored respiratory effort. Clear to auscultation bilaterally. No wheezes rales or rhonchi 6.GI: Soft, Nontender/Nondistended, No hepatosplenomegaly. No guarding or rebound. 7.MSK: Normocephalic/Atraumatic, Extremities w/o deformity or ttp No cyanosis or clubbing, Normal movement of all extremities, no calf tenderness 8.Skin: Warm, Dry. No rashes or lesions. 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 Sensation grossly intact, no focal neurologic deficits. 10.Psych: (AAO) x3. Appropriate mood and affect
[2021-10-06] MEDS: Normal Saline 1,000 ML 1000 ML IV ×2 (21:45→23:13)
[2021-10-06] MEDS: Ketorolac 30 MG/ML VIAL IVP (21:53)
[2021-10-06 22:00] LABS: Abs Immature Grans 0.02 10^3/uL (0.0-0.06); Absolute Basophil Count 0.01 10^3/uL (0.0-0.2); Absolute Lymphocyte Count 1.03 10^3/uL (1.2-3.4); Absolute Monocyte Count 0.58 10^3/uL (0.1-0.8); Absolute Neutrophil Count 5.48 10^3/uL (1.2-6.7); Basophils % 0.1; HCT 45.1 % (40.0-50.0); HGB 15.3 g/dL (13.5-17.5); Immature Grans % 0.3; Lymphocytes % 14.5; MCH 29.3 pg (27.0-33.0); MCHC 33.9 % (32.0-36.0); MCV 86.2 fL (80-95); Monocytes % 8.1; Nucleated RBC 0 %; Platelet Count 195 10^3/uL (130-400); RBC 5.23 10^6/uL (4.36-5.78); RDW-SD 41.1 fL; WBC 7.12 10^3/uL (4.4-10.8)
[2021-10-06 22:13] LABS: ALT 253 U/L (16-63); AST 143 U/L (15-37); Albumin 4.1 g/dL (3.4-5.0); Alkaline Phosphatase 72 U/L (46-116); Anion Gap 13.2 mmol/L (3-11); BUN 15 mg/dL (7-18); Bilirubin, Total 1.6 mg/dL (0.2-1.0); CO2 24.8 mmol/L (21.0-32.0); CREATININE 1.1 mg/dL (0.70-1.30); Calcium 8.4 mg/dL (8.5-10.1); Chloride 101 mmol/L (98-107); Glucose 92 mg/dL (74-106); Potassium 3.4 mmol/L (3.5-5.1); Sodium 139 mmol/L (136-145); Total Protein 8.3 g/dL (6.4-8.2)
--- NOTE | 2021-10-06 22:30 | DI.CT_ITS ---
Exam(s) CT ABDOMEN PELVIS W EXAM: CT ABDOMEN PELVIS W CLINICAL HISTORY: ruq pain, elevated bili, covid +. TECHNIQUE: Imaging Protocol: Axial computed tomography images with coronal and sagittal reformatted images were created and reviewed CONTRAST MATERIAL: Intravenous: Omnipaque 350 Contrast volume:100 ml Oral: no COMPARISON: CT CT ABDOMEN PELVIS W from 07/28/[address] ABDOMEN PELVIS W from 07/28/2019 CR,XR XR CHEST 2V PA LATERAL from 06/10/2020 CR,XR XR CHEST 2V PA LATERAL from 06/10/2020 CR,XR XR PORTABLE CHEST AP from 10/06/2021 CR,XR XR PORTABLE CHEST AP from 10/06/2021 FINDINGS: ABDOMEN: Lung Bases: Patchy bilateral basilar infiltrates, consistent with COVID. Trace bilateral pleural eff usions. Liver: Fatty infiltration.. No measurable mass. Gallbladder and biliary tract: No radiodense calculus or dilation. Pancreas: Normal density, no abnormal calcifications or inflammatory process. Spleen: Mildly enlarged. Kidneys: Normal size, contour and axis. No radiodense stones or obstructive uropathy. No masses seen. Adrenal glands: No masses seen. Abdominal Aorta: Abdominal portion non-dilated. PELVIS: Bladder: No gross wall thickening. No calculi.No focal mass. Bowel: Evaluation somewhat limited due to motion artifact. No obstruction or bowel wall thickening. Appendix normal. Peritoneal cavity: No ascites, collection or mesenteric inflammatory response. Bones: Within normal limits for age. Reproductive organs: Within normal limits. Lymph nodes: Unremarkable. Impression: Bilateral pulmonary infiltrates, consistent with COVID. Unremarkable CT scan of the abdomen and pelv is. RADIATION DOSE DELIVERED: 1,131.53mGy.cm Total DLP DATA REPOSITORY: All CT scans at this facility are submitted to the National Radiology Data Registry (NRDR) Dose Index Registry (DIR) with the [employer] (ACR). RADIATION OPTIMIZATION: All CT scans at this facility use at least one of these dose optimization te chniques: automated exposure control; mA and/or kV adjustment per patient size (includes targeted exa ms where dose is matched to clinical indication); or iterative reconstruction.
--- NOTE | 2021-10-06 22:41 | DI.VRAD_ITS ---
PROCEDURE INFORMATION: Exam: XR Chest Exam date and time: 10/06/2021 21:42 Age: 25 years old Clinical indication: Patient HX: Cough, covid + TECHNIQUE: Imaging protocol: XR of the chest. Views: 1 view. COMPARISON: CR XR CHEST 2V PA LATERAL 06/10/2020 18:46 FINDINGS: Lungs: Patchy mild interstitial opacities are now present predominantly in the lung bases. Pleural spaces: No pleural effusion. No pneumothorax. Heart/Mediastinum: No cardiomegaly. Bones/joints: No acute fracture. IMPRESSION: Findings concerning for atypical infection. Dictated and Authenticated by: Josee Ramirez MD. Ordering:MALLIKA Bhagat MD
[2021-10-06] MEDS: Omnipaque 350 MG/ML 100 ML BTL IJ (22:49)
[2021-10-06 22:56] LABS: Lipase 82 U/L (73-393)
--- NOTE | 2021-10-06 23:05 | DI.VRAD_ITS ---
PROCEDURE INFORMATION: Exam: CT Abdomen And Pelvis With Contrast Exam date and time: 10/06/2021 22:40 Age: 25 years old Clinical indication: Other: Ruq pain, elevated bili, covid + TECHNIQUE: Imaging protocol: Computed tomography of the abdomen and pelvis with contrast. COMPARISON: CT ABDOMEN PELVIS W 07/28/2019 21:04 FINDINGS: Lungs: Moderate patchy opacities in the lung bases are consistent with the history of COVID pneumonia. Liver: Fatty liver with no mass lesions. Gallbladder and bile ducts: Normal morphology of the gallbladder. No significant biliary dilation or radiopaque stones in the biliary tree. Pancreas: No ductal dilation. No masses. Spleen: Mild splenomegaly. Adrenal glands: No mass. Kidneys and ureters: No renal masses or hydronephrosis bilaterally. Stomach and bowel: Mild motion artifact with no acute appearing pathology in the small bowel or colon. Appendix: No evidence of appendicitis. Intraperitoneal space: No free air. No significant fluid collection. Vasculature: No abdominal aortic aneurysm. Lymph nodes: No significantly enlarged lymph nodes. Urinary bladder: Unremarkable as visualized. Reproductive: Unremarkable as visualized. Bones/joints: No acute fracture. Soft tissues: No suspicious lesions. IMPRESSION: 1. Pulmonary opacities consistent with the history of COVID pneumonia. 2. No acute abdominal or pelvic pathology. 3. Incidental findings as described. Dictated and Authenticated by: Josee Ramirez MD. Ordering:MALLIKA Bhagat MD
[2021-10-06 23:10] LABS: Bilirubin, Direct 0.5 mg/dL (0.0-0.2)
[2021-10-06] MEDS: Ondansetron 4 MG/2 ML VIAL IVP (23:20)
[2021-10-06] MEDS: Ondansetron O.D.T. 4 MG TABEF, 3 TABS/BTL PO (23:55)
[2021-10-08 11:21] LABS: Hepatitis A Antibody IgM Negative (Negative); Hepatitis B Core Antibody Negative (Negative); Hepatitis B surface Ag Negative (Negative); Hepatitis C Ab w Rflx HCV PCR Negative (Negative)
== END 2021-10-07 00:10 | disposition home or self-care (01) ==
PROVIDERS: Emergency Provider Student in an Organized Health Care Education/Training Program; PCP Family Medicine
DX: U07.1 COVID-19 (principal); E86.0 Dehydration; J12.82 Pneumonia due to coronavirus disease 2019; R74.01 Elevation of levels of liver transaminase levels; R10.11 Right upper quadrant pain
CPT/HCPCS: 36415; 80053; 83690; 86704; 86709; 86803; 87340; 96361; 96374; 96375; 99285; 71045; 74177; 82248; 85025; 99284; J1885; J2405; J3490

== ENCOUNTER 2021-12-25 04:16 | Outpatient (CLI) | payer MEDICAID, SELFPAY ==
[2021-12-25 09:06] LABS: Albumin 4.2 g/dL (3.4-5.0); Alkaline Phosphatase 104 U/L (46-116); TSH (W/Ref FT4) 1.56 uIU/mL (0.36-3.74); Total Protein 7.7 g/dL (6.4-8.2)
[2021-12-25 10:02] LABS: Bilirubin, Direct 0.2 mg/dL (0.0-0.2); Bilirubin, Total 1.3 mg/dL (0.2-1.0)
[2021-12-25 10:08] LABS: Cholesterol 91 mg/dL (<200); Triglyceride 529 mg/dL (<150)
[2021-12-25 10:09] LABS: HDL Cholesterol 21 mg/dL (40-60)
[2021-12-25 10:15] LABS: ALT 189 U/L (16-63); AST 118 U/L (15-37)
[2021-12-25 10:28] LABS: LDL CHOLESTEROL 64 mg/dL (<100)
[2021-12-26 10:56] LABS: HIV-1/2 Ag & Ab Screen Negative (Negative)
== END 2021-12-25 04:17 | disposition home or self-care (01) ==
LOC: LBO 04:16
PROVIDERS: PCP Family Medicine; Visit Provider Family Medicine
DX: R74.01 Elevation of levels of liver transaminase levels (principal); R63.5 Abnormal weight gain; Z13.220 Encounter for screening for lipoid disorders; Z11.4 Encounter for screening for human immunodeficiency virus [HIV]
CPT/HCPCS: 36415; 80061; 80076; 83721; 87389; 84443

== ENCOUNTER 2022-01-16 03:35 | Outpatient (CLI) | payer MEDICAID, SELFPAY ==
--- NOTE | 2022-01-16 13:00 | NS.NUTBLAN_ITS ---
Robin was referred for nutritional counseling for Non alcoholic Fatty Liver Disease. 5'10 228 lbs BMI 32. Robin reports gaining about 20 lbs in last couple of years. He is not active and eats mostly processed foods and take out. Labs indicates elevations in liver enzymes, triglycerides and low HDL. Has positive family hx of DM2. Session today focused on why SANCHEZ occurs with higher carbohydrate diets with genetic predisposition. Educated Robin on how to follow a lower carb, higher protein diet with emphasis on complex carbs, lean protein and healthy fats. Encouraged him to track macronutrients with phone to. Also, encouraged him to start tracking steps on phone to with goal of 10,000 steps daily. Goal is for a 10% weight loss- about 25 lbs in next 6 months by following a lower carb diet with increased exercise. Follow up planned for 02/11/22 at 11:45 am.
--- NOTE | 2022-02-11 13:51 | TELEFU_ITS ---
Date of service: 02/11/22 Time of Service: 13:51 Nutrition Note NOTE: Robin returns for weight management education for treatment of his Non alcoholic Fatty Liver. Wt: 218 lbs. Has lost 10 lbs in last 4 weeks by following lower carb diet. Robin enjoys setting up excel spread sheets and has logged his meals daily and maintained his carb intake to less than 100 grams while increasing protein intake to minimum of 70 grams. He still does not cook but is reading labels and looking up convenience foods for their nutritional content. He has been tracking his steps daily with average of 5000 steps. Encouraged Robin to continue to his modified reduced carb diet and increase st eps to average of 8000 steps daily. Goal is weight to be <200 lbs. Follow up scheduled for 03/25/22 at 11:45 am. Time Spent in Nutritional Counseling and Treatment: 30
== END 2022-01-16 03:36 | disposition home or self-care (01) ==
PROVIDERS: PCP Family Medicine; Visit Provider Dietitian, Registered
DX: K75.81 Nonalcoholic steatohepatitis (NASH) (principal); E66.3 Overweight; Z71.3 Dietary counseling and surveillance
CPT/HCPCS: 97802

== ENCOUNTER 2022-03-25 04:19 | Outpatient (CLI) | payer MEDICAID, SELFPAY ==
--- NOTE | 2022-03-25 11:00 | NS.NUTBLAN_ITS ---
Robin returns for weight management education. Weight: 200 lbs, down 28 lbs in last 3 months . PMH: Fatty liver. Robin has been doing very well following a lower carb diet. Following diet plan with max carb intake of 100 grams daily with emphasis on lean protein, complex carbs and non starchy vegetables. Has switched to all diet beverages. Tracks his steps daily and hitting about 6000 steps. Goal Weight: 180-190 lbs Session today focused on ways to continue to increase activity with emphasis on increasing steps to 8000-10,000 steps daily. Continue to lower carb diet 5 or 7 days per week. Follow up planned for 05/20/22 at 11 am.
== END 2022-03-25 04:20 | disposition home or self-care (01) ==
LOC: DS 04:19
PROVIDERS: PCP Family Medicine; Visit Provider Dietitian, Registered
DX: E66.3 Overweight (principal); K76.0 Fatty (change of) liver, not elsewhere classified; Z71.3 Dietary counseling and surveillance
CPT/HCPCS: 97803

== ENCOUNTER 2022-05-01 03:23 | Outpatient (CLI) | payer MEDICAID, SELFPAY ==
[2022-05-01 10:26] LABS: ESR 4 mm/hr (0-15); HGB 16.6 g/dL (13.5-17.5); MCH 28.8 pg (27.0-33.0); MCHC 33.9 % (32.0-36.0); MCV 85 fL (80-95); Platelet Count 271 10^3/uL (130-400); RBC 5.76 10^6/uL (4.36-5.78); RDW 12.4 % (11.8-14.1); RDW-SD 38.3 fL; WBC 6.87 10^3/uL (4.4-10.8)
[2022-05-01 10:53] LABS: C-Reactive Protein 0.39 mg/dL (0.0-0.3)
[2022-05-01 11:02] LABS: ALT 45 U/L (16-63); AST 20 U/L (15-37); Albumin 4.5 g/dL (3.4-5.0); Alkaline Phosphatase 76 U/L (46-116); Bilirubin, Direct 0.3 mg/dL (0.0-0.2); Bilirubin, Total 2.3 mg/dL (0.2-1.0); Total Protein 8.1 g/dL (6.4-8.2)
[2022-05-01 17:26] LABS: Rheumatoid Factor <8.6 IU/mL (<12.0)
[2022-05-02 09:16] LABS: Alpha 1 Antitrypsin,Serum 132 mg/dL (90-200)
[2022-05-02 13:55] LABS: HLA-B27 Result Negative
[2022-05-02 14:21] LABS: ANA Interpretation Negative (Negative)
[2022-05-02 22:03] LABS: Liver/Kidney Microsome Type 1 <5.0 U
[2022-05-03 09:44] LABS: Ceruloplasmin 24.9 mg/dL
[2022-05-03 12:37] LABS: Smooth Muscle Ab Screen Negative (Negative)
== END 2022-05-01 03:24 | disposition home or self-care (01) ==
LOC: LBO 03:23
PROVIDERS: PCP Family Medicine; Visit Provider Optometrist
DX: H15.11 Episcleritis periodica fugax (principal)
CPT/HCPCS: 36415; 80076; 82390; 85027; 85652; 86812; 82103; 86038; 86140; 86255; 86431

== ENCOUNTER 2022-05-20 04:34 | Outpatient (CLI) | payer MEDICAID, SELFPAY ==
--- NOTE | 2022-05-20 11:00 | NS.NUTBLAN_ITS ---
Robin returns for nutritional counseling for obesity and fatty liver. In last 8 months has lost 38 lbs, BMI went from 32 to 27 and liver enzymes now wnl. 5'10 Weight: 192 Robin continues to do well on lower carb diet. Following 80-100 g carbs daily and has removed most simple carbs in his diet. He states he feels better and wants to continue to lose weight. Goal weight for Robin is 180-190 lbs. Diet Recall: skips B, lunch is eats pickles and protein, dinner: noodles with veggies. Session today reviewed progress and accomplishments since starting lower carb diet. Reviewed lab values. Recommend weight remain < 200 lbs and to follow diet with moderate carb intake of <150 g daily. Encouraged continued exercise with stepper goal of 8000 steps daily. Recommend checking lipids at next blood draw. Will follow up as needed.
== END 2022-05-20 04:35 | disposition home or self-care (01) ==
LOC: DS 04:34
PROVIDERS: PCP Family Medicine; Visit Provider Dietitian, Registered
DX: E66.8 Other obesity (principal); K76.0 Fatty (change of) liver, not elsewhere classified; Z71.3 Dietary counseling and surveillance
CPT/HCPCS: 97803

== ENCOUNTER 2022-08-15 03:50 | Outpatient (CLI) | payer MEDICAID, SELFPAY ==
[2022-08-15 14:01] LABS: HCT 48.1 % (40.0-50.0); HGB 16.5 g/dL (13.5-17.5); MCH 29.2 pg (27.0-33.0); MCHC 34.3 % (32.0-36.0); MCV 85 fL (80-95); MPV 9.3 fL (8.0-11.0); Platelet Count 259 10^3/uL (130-400); RBC 5.65 10^6/uL (4.36-5.78); RDW 12.5 % (11.8-14.1); RDW-SD 38.5 fL; WBC 7.51 10^3/uL (4.4-10.8)
[2022-08-15 14:11] LABS: ESR 2 mm/hr (0-15)
[2022-08-15 14:33] LABS: C-Reactive Protein 0.36 mg/dL (0.0-0.3)
[2022-08-15 21:50] LABS: Rheumatoid Factor <8.6 IU/mL (<12.0)
[2022-08-16 09:09] LABS: Cyclic Citrullinated Peptide <2.5 U/mL (<5.0)
[2022-08-16 11:38] LABS: Lyme Ab w Rflx to Lyme Confirm Negative (Negative)
[2022-08-16 12:26] LABS: ANA Interpretation Negative (Negative)
[2022-08-16 14:28] LABS: HLA-B27 Result Negative
[2022-08-16 16:42] LABS: Syphilis IgG w/Reflex Nonreactive (Nonreactive)
== END 2022-08-15 03:51 | disposition home or self-care (01) ==
LOC: LBO 03:50
PROVIDERS: PCP Family Medicine; Visit Provider Optometrist
DX: H15.11 Episcleritis periodica fugax (principal); H57.89 Other specified disorders of eye and adnexa
CPT/HCPCS: 36415; 85027; 85652; 86200; 86812; 86038; 86140; 86431; 86618; 86780